=== PATIENT | female | born 1965 | race Caucasian/White ===

== ENCOUNTER 2016-09-17 07:07 | Observation (INO) | payer OTHER, MEDICAID ==
[~2016-09-17] VITALS: Ht 170.2 cm; Wt 98.0 kg
[2016-09-17] VITALS (10 sets, daily range): BP systolic 77–107; BP diastolic 45–64; PULSE 60–110; RESP 14–18; TEMP 97.9–98.2; O2SAT 91–97
[~2016-09-17 07:07] MED LIST: ASPI-110 PO; BACL10TA PO; CALC600T25 PO; GABA300C5 PO; LEVE500 PO; LEVO125T4 PO; MISC-274; NORC5TAB PO; OMEP20TA PO; ROSU20 PO; SUMA50TA2 PO; TRAZ100T4 PO
--- NOTE | 2016-09-17 07:12 | PD ---
HPI Chief Complaint: General Weakness Time Seen by Provider: 07:12 Travel History International Travel<30 days: No Contact w/Intl Traveler<30days: No Traveled to known affect area: No History of Present Illness HPI 51-year-old female came to the emergency room with history of presyncope and fall at 6:30 this morning. Patient has history of Marfan's syndrome and myasthenia gravis. She says that she has been feeling weak and lightheaded almost every morning. She avoids getting up from bed because of this. When she does she tries to do it slowly. However today in spite of all this she got extremely weak she when she got up and fell. She denies any loss of consciousness. Patient's mother and both are here were giving additional history although patient is perfectly capable of giving her own history as well. As per the mother patient was recently diagnosed with seizure disorder and she is on Keppra. During the same time she was also told that she has a tendency of hypertension although majority of the time her blood pressure runs in the 90s. This morning when this event happened patient called her mother who asked her to check her blood pressure at home. Patient checked with her own machine and it was 178/100. Based on this read her mother insisted that she should take her blood pressure medication which was metoprolol 25 mg. Patient says she took that again at 6:30 but after that she did not feel quite okay. She was unable to stand up due to the constant lightheadedness and asked her to take her to the emergency room. She used a walker but still had to get additional support from her since she was lightheaded. Patient says she fell yesterday as well for almost the same reason. When she arrived her blood pressure systolic was 77 and heart rate of 110. No history of head injury during the fall. No history of chest pain, nausea vomiting PFSH Past Medical History Narrative Medical List of her past medical, surgical, social and family history reviewed from the nursing note. Anemia: Yes Arthritis: Yes (left arm) Asthma: No Autoimmune Disease: No Blood Disorders: No Anxiety: Yes Depression: No Heart Rhythm Problems: No Cancer: No Cardiovascular Problems: Yes (HTN) High Cholesterol: Yes Chemotherapy: No Chest Pain: No Congestive Heart Failure: No COPD: No Diabetes: No Diminished Hearing: Yes (BILATERAL - STS HOLES IN EAR DRUMS) Endocrine: Yes Gastrointestinal Disorders: Yes (NAUSEA AND VOMITING) GERD: Yes Genitourinary: No Headaches: Yes Hepatitis: No Hypertension: Yes Immune Disorder: No Kidney Stones: No Musculoskeletal: Yes Neurologic: Yes Psychiatric: Yes Reproductive: No Respiratory: No Immunizations Current: Yes Migraines: Yes Myocardial Infarction: No Pancreatitis: Yes Radiation Therapy: No Renal Failure: No Sleep Apnea: No Thyroid Disease: Yes (HYPOTHYROIDISM) Menopausal: Yes : 2 Para: 2 Tubal Ligation: Yes (1988) Past Surgical History Abdominal Surgery: Yes (hernia repair, gall bladder removed) AICD: No Appendectomy: No Arteriovenous Shunt: No Cardiac Surgery: No Cholecystectomy: Yes Endocrine Surgery: No Eye Surgery: No Genitourinary Surgery: Yes (partial hysterectomy) Gynecologic Surgery: Yes Hysterectomy: Yes Insulin Pump: No Joint Replacement: No Neurologic Surgery: No Oral Surgery: Yes (WISDOM TEETH AND OTHER TEETH EXTRACTED) Pacemaker: No Thoracic Surgery: No Tonsillectomy: Yes Other Surgery: Yes (LAPROSCOPY WITH REMOVAL OF SCAR TISSUE FROM INTESTINES) Social History Alcohol Use: No Tobacco Use: No Substance Use: Yes (crack) Allergies-Medications (Allergen,Severity, Reaction): Coded Allergies: Codeine (Verified Allergy, Severe, RASH, 09/17/16) Morphine (Verified Allergy, Severe, 09/17/16) rash Penicillin (Verified Allergy, Severe, RASH, 09/17/16) Aspirin (Verified Adverse Reaction, Severe, ULCER, 09/17/16) Comments List of her allergies reviewed from the nursing note. Reported Meds & Prescriptions Reported Meds & Active Scripts Active Aspirin 81 (Aspirin) 81 Mg Tabdr 81 Mg PO DAILY 30 Days Keppra (Levetiracetam) 500 Mg Tab 500 Mg PO BID Folding Walker/5" Wheels (Device) 1 Mis Mis 1 Ea .ROUTE DIRECTED Reported Vitamin C (Calcium Ascorbate) 500 Mg Tab 500 Mg PO DAILY Fish Oil ([place]-3 Fatty Acids) 1,000 Mg Cap 2,000 Mg PO Coq-10 (Coenzyme Q10 (Ubidecarenone)) 400 Mg Cap 1 Tab PO DAILY Centrum Silver (Multiple Vitamins W/ Minerals) 1 Tab 1 Tab PO DAILY Biotin 5,000 Mcg Subl 5,000 Mcg SL DAILY Rosuvastatin (Rosuvastatin Calcium) 20 Mg Tab 20 Mg PO DAILY Stool Softener (Docusate Sodium) 100 Mg Cap 1 Cap PO DAILY Ondansetron (Ondansetron HCl) 4 Mg Tab 1 Mg PO BID Laxative Formula (Misc Natural Products) 1 Tab Tab 8.6 Mg PO DAILY@1600 Fenofibrate 145 Mg Tab 145 Mg PO DAILY Escitalopram (Escitalopram Oxalate) 20 Mg Tab 20 Mg PO BID Divalproex DR (Divalproex Sodium) 250 Mg Tabdr 250 Mg PO BID Cymbalta DR (Duloxetine HCl) 60 Mg Capdr 60 Mg PO HS Allergy 12 HR (Chlorpheniramine Maleate) 12 Mg Tab 12 Mg PO Q12H Calcium (Calcium Carbonate) 600 Mg Tab 1,200 Mg PO DAILY Trazodone (Trazodone HCl) 100 Mg Tab 100 Mg PO HS Gabapentin 300 Mg Cap 300 Mg PO TID Levothyroxine (Levothyroxine Sodium) 125 Mcg Tab 125 Mcg PO BID Omeprazole 20 Mg Tab 20 Mg PO DAILY Narrative Medication List of her home medications reviewed from the nursing note. Review of Systems Except as stated in HPI: all other systems reviewed are Neg Physical Exam Narrative GENERAL: Awake, alert, obese, moderate distress SKIN: Focused skin assessment warm/dry. HEAD: Atraumatic. Normocephalic. EYES: Pupils equal and round. No scleral icterus. No injection or drainage. ENT: No nasal bleeding or discharge. Mucous membranes pink and moist. NECK: Trachea midline. No JVD. CARDIOVASCULAR: Regular rate and rhythm. No murmur appreciated. RESPIRATORY: No accessory muscle use. Clear to auscultation. Breath sounds equal bilaterally. GASTROINTESTINAL: Abdomen soft, non-tender, nondistended. Hepatic and splenic margins not palpable. MUSCULOSKELETAL: No obvious deformities. No clubbing. No cyanosis. No edema. No obvious focal deficit NEUROLOGICAL: Awake and alert. No obvious cranial nerve deficits. Motor grossly within normal limits. Normal speech. PSYCHIATRIC: Appropriate mood and affect; insight and judgment normal. Data Data Last Documented VS Vital Signs Date Time Temp Pulse Resp B/P Pulse Ox O2 Delivery O2 Flow Rate FiO2 09/17/16 08:30 61 15 96/56 95 Nasal Cannula 2 09/17/16 07:11 98.2 Orders Electrocardiogram (09/17/16 ) Prothrombin Time / Inr (Pt) (09/17/16 07:48) Complete Blood Count With Diff (09/17/16 07:48) Basic Metabolic Panel (Bmp) (09/17/16 07:48) Troponin I (09/17/16 07:48) Ct Brain W/O Iv Contrast(Rout) (09/17/16 07:48) Ecg Monitoring (09/17/16 07:48) Iv Access Insert/Monitor (09/17/16 07:48) Oximetry (09/17/16 07:48) Sodium Chloride 0.9% Flush (Ns Flush) (09/17/16 08:00) Lipase (09/17/16 08:12) Pantoprazole Inj (Protonix Inj) (09/17/16 08:15) Creatine Kinase (Cpk) (09/17/16 09:23) Valproic Acid (Depakene) (09/17/16 09:23) Divalproex (Froilan Chua) (09/17/16 21:00) Duloxetine (John Chua) (09/17/16 21:00) Fenofibrate (Tricor) (09/18/16 09:00) Gabapentin (Neurontin) (09/17/16 21:00) Levetiracetam (Keppra) (09/17/16 21:00) Trazodone (Desyrel) (09/17/16 21:00) Aspirin Ec (Ecotrin Ec) (09/18/16 09:00) (Nf) Biotin (09/18/16 09:00) Ascorbic Acid (Vitamin C) (09/18/16 09:00) Calcium Carbonate (Oscal) (09/18/16 09:00) Patient Own Medication (09/17/16 21:00) (Nf) Coenzyme Q10 (Ubidecarenone) (Coq-1 (09/18/16 09:00) Docusate Sodium (Colace) (09/18/16 09:00) Multivitamins-Minerals Therap (Theragran (09/18/16 09:00) Pantoprazole (Protonix) (09/18/16 09:00) Ondansetron Odt (Zofran Odt) (09/17/16 21:00) Atorvastatin (Lipitor) (09/18/16 09:00) Thyroid Stimulating Hormone (09/17/16 09:27) Admit Order (Ed Use Only) (09/17/16 09:28) Levothyroxine (Synthroid) (09/18/16 06:00) Escitalopram (Lexapro) (09/18/16 09:00) Labs Laboratory Tests Test 09/17/16 07:40 White Blood Count 7.6 TH/MM3 Red Blood Count 4.47 MIL/MM3 Hemoglobin 12.6 GM/DL Hematocrit 38.3 % Mean Corpuscular Volume 85.7 FL Mean Corpuscular Hemoglobin 28.3 PG Mean Corpuscular Hemoglobin 33.0 % Concent Red Cell Distribution Width 14.5 % Platelet Count 394 TH/MM3 Mean Platelet Volume 8.2 FL Neutrophils (%) (Auto) % Lymphocytes (%) (Auto) % Monocytes (%) (Auto) % Eosinophils (%) (Auto) % Basophils (%) (Auto) % Neutrophils # (Auto) TH/MM3 Lymphocytes # (Auto) TH/MM3 Monocytes # (Auto) TH/MM3 Eosinophils # (Auto) TH/MM3 Basophils # (Auto) TH/MM3 CBC Comment AUTO DIFF Differential Total Cells 100 Counted Neutrophils % (Manual) 45 % Band Neutrophils % 3 % Lymphocytes % 41 % Monocytes % 6 % Eosinophils % 5 % Neutrophils # (Manual) 3.6 TH/MM3 Differential Comment FINAL DIFF MANUAL Platelet Estimate NORMAL Platelet Morphology Comment NORMAL Prothrombin Time 10.9 SEC Prothromb Time International 1.0 RATIO Ratio Sodium Level 139 MEQ/L Potassium Level 3.8 MEQ/L Chloride Level 101 MEQ/L Carbon Dioxide Level 26.4 MEQ/L Anion Gap 12 MEQ/L Blood Urea Nitrogen 25 MG/DL Creatinine 1.27 MG/DL Estimat Glomerular Filtration 44 ML/MIN Rate Random Glucose 114 MG/DL Calcium Level 9.1 MG/DL Total Creatine Kinase 34 U/L Troponin I LESS THAN 0.02 NG/ML Lipase 206 U/L Thyroid Stimulating Hormone 1.470 uIU/ML 3rd Gen Valproic Acid (Depakene) Level 32 MCG/ML [facility] Medical Decision Making Medical Screen Exam Complete: Yes Emergency Medical Condition: Yes Medical Record Reviewed: Yes Interpretation(s) Twelve-lead EKG was reviewed by me. Normal sinus rhythm, left axis deviation, anterior ST depression and T-wave inversion which is unchanged from 04/13. Heart rate of 63 bpm. Differential Diagnosis Orthostatic hypotension, iatrogenic hypotension, dehydration, sepsis Narrative Course 8:02 AM in my opinion patient has been hypotensive for which was exacerbated by taking the blood pressure medication. When she stood up she developed orthostatic hypotension which made her dizzy and fall. If this has been happening for a while then it could either be iatrogenically or dehydration or sepsis. Patient is getting a workup. Awaiting for blood test and CAT scan of her head. She is getting 1 L fluid bolus. I'll reassess her in a bit. 9:01 AM blood test results of back and shows somewhat elevated BUN and creatinine suggestive of possible dehydration. CT scan is within normal limit. Since this has been going on for past some time I would like to admit this patient at least for observation to keep an eye on her blood pressure and if she truly requires the blood pressure medication. Procedures EKG Prior to Arrival: No Diagnosis Primary Impression: Pre-syncope Additional Impressions: Fall Qualified Code: W19.XXXA - Fall, initial encounter Dehydration Orthostatic hypotension Admitting Information Admitting Physician Requests: Observation Siomara Erwin MD September 17, 2016 07:12
[2016-09-17] MEDS ORDERED: ONDA1TAB16 PO (07:28)
[2016-09-17] MEDS ORDERED: CYMB60CA PO (07:28)
[2016-09-17] MEDS ORDERED: [UNRECOGNIZED DRUG - CODE] PO (07:28)
[2016-09-17] MEDS ORDERED: CHLO1TAB23 PO (07:28)
[2016-09-17] MEDS ORDERED: ESCI20TA PO (07:28)
[2016-09-17] MEDS ORDERED: ROSU1TAB8 PO (07:28)
[2016-09-17] MEDS ORDERED: STOO100C PO (07:28)
[2016-09-17] MEDS ORDERED: FENO145T2 PO (07:28)
[2016-09-17] MEDS ORDERED: DIVA250T PO (07:28)
[2016-09-17] MEDS ORDERED: CENTTAB PO (07:31)
[2016-09-17] MEDS ORDERED: VITA-83 PO (07:31)
[2016-09-17] MEDS ORDERED: BIOT1SUB SL (07:31)
[2016-09-17] MEDS ORDERED: FISH1000 PO (07:31)
[2016-09-17] MEDS ORDERED: COEN400C PO (07:31)
[2016-09-17] MEDS ORDERED: SODIUM CHLORIDE 0.9% FLUSH 10 ML FLUSH IVF PRN (08:00)
[2016-09-17 08:07] LABS: HEMATOCRIT 38.3 % (35.0-46.0); MEAN CELL VOLUME 85.7 FL (80.0-100.0); MEAN CORPUSCULAR HEMOGLOBIN 28.3 PG (27.0-34.0); PLATELET COUNT 394 TH/MM3 (150-450); RED BLOOD COUNT 4.47 MIL/MM3 (4.00-5.30); RED CELL DISTRIBUTION WIDTH 14.5 % (11.6-17.2); WHITE BLOOD COUNT 7.6 TH/MM3 (4.0-11.0)
[2016-09-17 08:14] LABS: PROTHROMBIN TIME - PATIENT 10.9 SEC (9.8-11.6)
[2016-09-17] MEDS ORDERED: PANTOPRAZOLE SODIUM 40 MG VIAL IV PUSH ONE (08:15)
[2016-09-17 08:17] LABS: HEMO FLAGS AUTO DIFF
[2016-09-17 08:20] LABS: ANION GAP 12 MEQ/L (5-15); BICARBONATE 26.4 MEQ/L (21.0-32.0); BLOOD UREA NITROGEN 25 MG/DL (7-18); CHLORIDE 101 MEQ/L (98-107); GLOMERULAR FILTRATION RATE 44 ML/MIN (>89); POTASSIUM 3.8 MEQ/L (3.5-5.1); SODIUM (NA) 139 MEQ/L (136-145)
--- NOTE | 2016-09-17 08:30 | RADRPT ---
EXAM DATE/TIME: 09/17/2016 08:14 [place] COMPARISON: CT BRAIN W/O CONTRAST, April 24, 2016, 9:01. INDICATIONS : Patient complains of weakness and falling. RADIATION DOSE: 56.35 CTDIvol (mGy) MEDICAL HISTORY : Marfans syndrome,myasthenia gravis SURGICAL HISTORY : None. ENCOUNTER: Initial ACUITY: 1 day PAIN SCALE: 0/10 LOCATION: Bilateral cranial TECHNIQUE: Multiple contiguous axial images were obtained of the head. Using automated exposure control and adj ustment of the mA and/or kV according to patient size, radiation dose was kept as low as reasonably a chievable to obtain optimal diagnostic quality images. FINDINGS: CEREBRUM: The ventricles are normal. There is stable well-defined area of low density in the left basal ganglia . No evidence of midline shift, mass lesion, hemorrhage or acute infarction. No extra-axial fluid c ollections are seen. POSTERIOR FOSSA: The cerebellum and brainstem demonstrate no acute finding. The 4th ventricle is midline. The cerebe llopontine angle is unremarkable. EXTRACRANIAL: Visualized sinuses are clear. SKULL: The calvaria is intact. No evidence of skull fracture. CONCLUSION: Stable noncontrast head CT. No acute intracranial abnormality is identified. There is a stable old la cune in the left basal ganglia. Claude Lennon MD on September 17, 2016 at 8:26 Board Certified Radiologist. This report was verified electronically.
[2016-09-17 08:53] LABS: BANDS 3 % (0-6); EOSINOPHILS 5 % (0-4); NEUTROPHIL # MANUAL DIFF 3.6 TH/MM3 (1.8-7.7); POLYS (SEG NEUTROPHILS) 45 % (16-70); WBC DIFF SAMPLE 100
[2016-09-17 08:55] LABS: PLATELET ESTIMATE SMEAR NORMAL (NORMAL); PLATELET MORPHOLOGY NORMAL (NORMAL); SCAN/DIFF FINAL DIFF MANUAL
[2016-09-17] MEDS ORDERED: NALOXONE HCL 0.4 MG/ML AMP IV PRN (09:30)
[2016-09-17] MEDS ORDERED: SODIUM CHLOR 0.9% 250 ML INJ 250 ML IV PRN (09:30)
[2016-09-17] MEDS ORDERED: SENNOSIDES 8.6 MG TAB PO PRN (09:30)
[2016-09-17] MEDS ORDERED: ACETAMINOPHEN 325 MG TAB PO PRN ×2 (09:30)
[2016-09-17] MEDS ORDERED: SODIUM CHLORIDE 0.9% FLUSH 10 ML FLUSH IV FLUSH PRN (09:30)
[2016-09-17] MEDS ORDERED: ONDANSETRON HCL 4 MG/2 ML VIAL IVP PRN (09:30)
[2016-09-17] MEDS: SODIUM CHLOR 0.9% 1000 ML INJ 1,000 ML IV SCH ×2 (12:40→19:27)
--- NOTE | 2016-09-17 14:32 | HHI.HP ---
[facility] Gonsalo Vega MD Admission Diagnosis orthostatic hypotension, presyncope, dehydration Diagnoses: Chief Complaint: presyncope, fall Travel History International Travel<30 Days: No Contact w/Intl Traveler <30 Da: No Traveled to Known Affected Are: No History of Present Illness Written by Elba Hurley, acting as scribe for Dr. Ramirez on 09/17/16 at 14: 42. 51-year-old female with history of Marfan's syndrome, myasthenia gravis presents , intracerebral aneurysm, seizures, presents with a 2 day history of lightheadedness, near syncope, and subsequent fall. The patient reports she's experienced 2 falls in the past 2 days. The patient reports she gets very lightheaded then falls. Denies hitting her head but did slide down against the wall yesterday. This morning around 6am the patient got out of bed and became extremely lightheaded, subsequently weak, and fell to the floor. Denies hitting her head or any loss of consciousness. Later in the morning she took her blood pressure which was 171/100. She has been told in the past by her physicians to take her metoprolol 25mg when her blood pressure is high so she took this immediately, however her lightheadedness worsened and she was then not able to ambulate and asked her to take her to the ER. The patient denies any recent vomiting or diarrhea, however she has had recent dental extractions preparing for dental implants therefore she has mostly only been eating a liquid diet. The patient reports she last had an echocardiogram with her band straightener Dr. Holman in which was reportedly unremarkable. The patient has no other medical complaints at this time. Upon arrival, her blood pressure was 77/45, given IVF, blood pressure now improving. Review of Systems Except as stated in HPI: all other systems reviewed are Neg Past Family Social History Past Medical History Marfan's syndrome Myasthenia gravis Hypertension Hx of CVA Hypothyroidism GERD Arthritis Anxiety Seizure disorder Intracerebral aneurysm Past Surgical History Hernia surgeries Tubal ligation Hysterectomy Cholecystectomy Dental extractions Feet surgery Reported Medications Aspirin 81 (Aspirin) 81 Mg Tabdr 81 Mg PO DAILY 30 Days Keppra (Levetiracetam) 500 Mg Tab 500 Mg PO BID Folding Walker/5" Wheels (Device) 1 [facility] Mis 1 Ea .ROUTE DIRECTED Vitamin C (Calcium Ascorbate) 500 Mg Tab 500 Mg PO DAILY Fish Oil ([place]-3 Fatty Acids) 1,000 Mg Cap 2,000 Mg PO Coq-10 (Coenzyme Q10 (Ubidecarenone)) 400 Mg Cap 1 Tab PO DAILY Centrum Silver (Multiple Vitamins W/ Minerals) 1 Tab 1 Tab PO DAILY Biotin 5,000 Mcg Subl 5,000 Mcg SL DAILY Rosuvastatin (Rosuvastatin Calcium) 20 Mg Tab 20 Mg PO DAILY Stool Softener (Docusate Sodium) 100 Mg Cap 1 Cap PO DAILY Ondansetron (Ondansetron HCl) 4 Mg Tab 1 Mg PO BID Laxative Formula ([facility] Natural Products) 1 Tab Tab 8.6 Mg PO DAILY@1600 Fenofibrate 145 Mg Tab 145 Mg PO DAILY Escitalopram (Escitalopram Oxalate) 20 Mg Tab 20 Mg PO BID Divalproex DR (Divalproex Sodium) 250 Mg Tabdr 250 Mg PO BID Cymbalta DR (Duloxetine HCl) 60 Mg Capdr 60 Mg PO HS Allergy 12 HR (Chlorpheniramine Maleate) 12 Mg Tab 12 Mg PO Q12H Calcium (Calcium Carbonate) 600 Mg Tab 1,200 Mg PO DAILY Trazodone (Trazodone HCl) 100 Mg Tab 100 Mg PO HS Gabapentin 300 Mg Cap 300 Mg PO TID Levothyroxine (Levothyroxine Sodium) 125 Mcg Tab 125 Mcg PO BID Omeprazole 20 Mg Tab 20 Mg PO DAILY Allergies: Coded Allergies: Codeine (Verified Allergy, Severe, RASH, 09/17/16) Morphine (Verified Allergy, Severe, 09/17/16) rash Penicillin (Verified Allergy, Severe, RASH, 09/17/16) Aspirin (Verified Adverse Reaction, Severe, ULCER, 09/17/16) Active Ordered Medications Current Medications Medications (Trade) Dose Ordered Sig/Zan Route Start Time Stop Time Status Last Admin (Depakote Dr) 250 mg BID PO 09/17/16 21:00 (Cymbalta Dr) 60 mg HS PO 09/17/16 21:00 (Lexapro) 20 mg DAILY PO 09/18/16 09:00 (Tricor) 145 mg DAILY PO 09/18/16 09:00 (Neurontin) 300 mg BID PO 09/17/16 21:00 (Keppra) 500 mg BID PO 09/17/16 21:00 (Synthroid) 125 mcg DAILY@0600 PO 09/18/16 06:00 (Desyrel) 100 mg HS PO 09/17/16 21:00 (Ecotrin Ec) 81 mg DAILY PO 09/18/16 09:00 (Vitamin C) 500 mg DAILY PO 09/18/16 09:00 (Oscal) 1,000 mg DAILY PO 09/18/16 09:00 Patient Own Medication PT OWN MED: Chlorpheniramine 12 MG (Martin... BID PO 09/17/16 21:00 Future Hold (Colace) 100 mg DAILY PO 09/18/16 09:00 (Theragran M Tab) 1 tab DAILY PO 09/18/16 09:00 (Protonix) 20 mg DAILY PO 09/18/16 09:00 (Zofran Odt) 1 mg BID PO 09/17/16 21:00 Atorvastatin Calcium 40 mg 40 mg DAILY PO 09/18/16 09:00 Sodium Chloride 250 ml @ 250 mls/hr Q4H PRN IV 09/17/16 09:30 (NS 1000 ml Inj) 1,000 ml @ 100 mls/hr Q10H IV 09/17/16 09:27 09/17/16 12:40 (NS Flush) 2 ml UNSCH PRN IV FLUSH 09/17/16 09:30 (NS Flush) 2 ml BID IV FLUSH 09/17/16 21:00 (Tylenol) 650 mg Q4H PRN PO 09/17/16 09:30 (Zofran Inj) 4 mg Q6H PRN IVP 09/17/16 09:30 (Senokot) 17.2 mg Q12H PRN PO 09/17/16 09:30 (Tylenol) 650 mg Q6H PRN PO 09/17/16 09:30 (Narcan Inj) 0.4 mg UNSCH PRN IV 09/17/16 09:30 Family History Father and younger sibling with myasthenia gravis Social History Denies any tobacco, alcohol, or illicit drug use. Lives with her . Physical Exam Vital Signs Vital Signs Date Time Temp Pulse Resp B/P Pulse Ox O2 Delivery O2 Flow Rate FiO2 09/17/16 12:18 97.9 60 16 97/60 91 09/17/16 10:00 60 17 104/59 97 Nasal Cannula 2 09/17/16 08:30 61 15 96/56 95 Nasal Cannula 2 09/17/16 07:15 110 15 77/45 95 09/17/16 07:13 95 Nasal Cannula 2 09/17/16 07:13 74 17 91 Room Air 09/17/16 07:11 98.2 74 14 107/64 96 Physical Exam GENERAL: Well-nourished, well-developed middle aged female patient in [facility]. SKIN: Warm and dry. No rash. HEAD: Normocephalic. Atraumatic. EYES: Pupils equal and round. No scleral icterus. No injection or drainage. ENT: No nasal bleeding or discharge. Mucous membranes pink and moist. NECK: Supple. Trachea midline. CARDIOVASCULAR: Regular rate and rhythm. S1, S2 noted. No murmur appreciated. RESPIRATORY: No accessory muscle use. Clear to auscultation. Breath sounds equal bilaterally. GASTROINTESTINAL: Abdomen soft, non-tender, nondistended. Normoactive bowel sounds x4. MUSCULOSKELETAL: No obvious deformities. Extremities without clubbing, cyanosis , or edema. NEUROLOGICAL: Awake and alert. No obvious cranial nerve deficits. Motor grossly within normal limits. 5/5 muscle strength in bilateral upper and lower extremities. Normal speech. PSYCHIATRIC: Appropriate mood and affect; insight and judgment normal. Laboratory Laboratory Tests Test 09/17/16 07:40 White Blood Count 7.6 Red Blood Count 4.47 Hemoglobin 12.6 Hematocrit 38.3 Mean Corpuscular Volume 85.7 Mean Corpuscular Hemoglobin 28.3 Mean Corpuscular Hemoglobin 33.0 Concent Red Cell Distribution Width 14.5 Platelet Count 394 Mean Platelet Volume 8.2 Neutrophils (%) (Auto) Lymphocytes (%) (Auto) Monocytes (%) (Auto) Eosinophils (%) (Auto) Basophils (%) (Auto) Neutrophils # (Auto) Lymphocytes # (Auto) Monocytes # (Auto) Eosinophils # (Auto) Basophils # (Auto) CBC Comment AUTO DIFF Differential Total Cells 100 Counted Neutrophils % (Manual) 45 Band Neutrophils % 3 Lymphocytes % 41 Monocytes % 6 Eosinophils % 5 Neutrophils # (Manual) 3.6 Differential Comment FINAL DIFF MANUAL Platelet Estimate NORMAL Platelet Morphology Comment NORMAL Prothrombin Time 10.9 Prothromb Time International 1.0 Ratio Sodium Level 139 Potassium Level 3.8 Chloride Level 101 Carbon Dioxide Level 26.4 Anion Gap 12 Blood Urea Nitrogen 25 Creatinine 1.27 Estimat Glomerular Filtration 44 Rate Random Glucose 114 Calcium Level 9.1 Total Creatine Kinase 34 Troponin I LESS THAN 0.02 Lipase 206 Thyroid Stimulating Hormone 1.470 3rd Gen Valproic Acid (Depakene) Level 32 Result Diagram: 09/17/16 0740 09/17/16 0740 Imaging Last Impressions Head CT 09/17/16 0748 Signed Impressions: Service Date/Time: Saturday, September 17, 2016 08:14 - CONCLUSION: Stable noncontrast head CT. No acute intracranial abnormality is identified. There is a stable old lacune in the left basal ganglia. Claude Lennon MD Assessment and Plan Problem List: (1) Pre-syncope ICD Code: R55 Status: Acute (2) Fall ICD Code: W19.XXXA Status: Acute (3) Dehydration ICD Code: E86.0 Status: Resolved Assessment and Plan 51-year-old female with history of Marfan's syndrome, myasthenia gravis, intracerebral aneurysm, seizures, presents with a 2 day history of lightheadedness, near syncope, and subsequent fall. Lightheadedness/Near-Syncope: suspect secondary to hypotension with dehydration in combination with taking antihypertensive. BP 77/45 upon arrival. Given IVF bolus, BP improving. Head CT images reviewed, unremarkable for acute findings. Continue IVF. Check orthostatics. Hold BP meds. Monitor on telemetry. Neuro checks. Fall precautions. PT Eval. JOSE LUIS with Dehydration: Secondary to recent decreased oral intake after dental surgery. Cr 1.27 upon arrival, previously 0.78 in . Continue IVF. Repeat BMP. Avoid nephrotoxins. Hypotension: secondary to dehydration and antihypertensives. Holding BP med. On IVF. Monitor BP, improving. Seizure Disorder: chronic, continue patient's keppra and depakote. Depakote level low. Seizure precautions. Hypothyroidism: chronic, continue patient's levothyroxine. TSH wnl. GERD: chronic, continue patient's PPI. Hyperlipidemia: chronic, continue patient's statin. Anxiety: chronic, continue patient's home medications. All other chronic medical conditions stable, continue home medications as appropriate. DVT Prophylaxis: teds/SCDs Discharge Planning: likely discharge tomorrow if BP and renal function improves. This note was transcribed by nely Hurley. I, Dr. Noel Ramirez personally performed the history, physical exam, and medical decision making; and confirmed the accuracy of the information in the transcribed note. Authenticated by Dr. Noel Ramirez on 09/17/16 at 18:42. Discussed Condition With Patient, ER MD Problem Qualifiers (1) Fall: Qualified Code: W19.XXXA - Fall, initial encounter Elba Hurley PA-C September 17, 2016 14:32 Noel Ramirez MD September 17, 2016 18:42
[2016-09-17] MEDS: levETIRAcetam 500 MG TAB PO SCH (20:32)
[2016-09-17] MEDS: DIVALPROEX SODIUM DELAYED RELEASE 250 MG TAB PO SCH (20:33)
[2016-09-17] MEDS: GABAPENTIN 300 MG CAP PO SCH (20:33)
[2016-09-17] MEDS: ONDANSETRON ODT 4 MG TAB PO SCH (20:33)
[2016-09-17] MEDS: SODIUM CHLORIDE 0.9% FLUSH 10 ML FLUSH IV FLUSH SCH (20:33)
[2016-09-17] MEDS ORDERED: [UNRECOGNIZED DRUG - REMARK] PO SCH (21:00)
[2016-09-17] MEDS ORDERED: DULoxetine HCl DR 60 MG CAP PO SCH (21:00)
[2016-09-17] MEDS ORDERED: traZODone HCL 100 MG TAB PO SCH (21:00)
[2016-09-18 00:21] VITALS: BP 114/56; PULSE 59; RESP 18; TEMP 98.3; O2SAT 93
[2016-09-18] MEDS: SODIUM CHLOR 0.9% 1000 ML INJ 1,000 ML IV SCH (01:52)
[2016-09-18 04:20] VITALS: BP 128/62; PULSE 66; RESP 18; TEMP 98.5; O2SAT 91
[2016-09-18] MEDS ORDERED: LEVOTHYROXINE SODIUM 125 MCG TAB PO SCH (06:00)
[2016-09-18 07:55] LABS: BICARBONATE 28.6 MEQ/L (21.0-32.0)
[2016-09-18 08:43] VITALS: BP 121/76; PULSE 65; RESP 18; TEMP 98.4; O2SAT 96
[2016-09-18] MEDS: SODIUM CHLORIDE 0.9% FLUSH 10 ML FLUSH IV FLUSH SCH (08:50)
[2016-09-18] MEDS: levETIRAcetam 500 MG TAB PO SCH (08:51)
[2016-09-18] MEDS: DIVALPROEX SODIUM DELAYED RELEASE 250 MG TAB PO SCH (08:51)
[2016-09-18] MEDS: GABAPENTIN 300 MG CAP PO SCH (08:52)
[2016-09-18] MEDS: ONDANSETRON ODT 4 MG TAB PO SCH (08:52)
[2016-09-18] MEDS ORDERED: NON-FORMULARY DRUG (Biotin 5,000 MCG) SL SCH (09:00)
[2016-09-18] MEDS ORDERED: ASPIRIN EC 81 MG TABEC PO SCH (09:00)
[2016-09-18] MEDS ORDERED: ESCITALOPRAM OXALATE 20 MG TAB PO SCH (09:00)
[2016-09-18] MEDS ORDERED: ATORVASTATIN 40 MG TAB PO SCH (09:00)
[2016-09-18] MEDS ORDERED: NON-FORMULARY DRUG (Coenzyme Q10 (Ubidecarenone) (Coq-10) 1 TAB) PO SCH (09:00)
[2016-09-18] MEDS ORDERED: PANTOPRAZOLE SOD 20 MG DELAYED RELEASE TAB PO SCH (09:00)
[2016-09-18] MEDS ORDERED: ASCORBIC ACID 500 MG TAB PO SCH (09:00)
[2016-09-18] MEDS ORDERED: FENOFIBRATE 145 MG TAB PO SCH (09:00)
[2016-09-18] MEDS ORDERED: DOCUSATE SODIUM 100 MG CAP PO SCH (09:00)
[2016-09-18] MEDS ORDERED: CALCIUM CARBONATE 1.25 GM (CA 500 MG) TAB PO SCH (09:00)
[2016-09-18] MEDS ORDERED: MULTIVITAMINS/MINERALS THERAPEUTIC TAB PO SCH (09:00)
[2016-09-18 11:49] VITALS: BP 100/52; PULSE 65; RESP 18; TEMP 98.7; O2SAT 93
[2016-09-18 12:48] VITALS: BP_SYST 100; BP_SYST 108; BP_SYST 84; BP_DIAS 53; BP_DIAS 55; BP_DIAS 57; PULSE 67
--- NOTE | 2016-09-18 13:34 | HHI.PR ---
Subjective Remarks Follow-up for near syncope. The patient is feeling much better today. She's been ambulating with no difficulties. She states that the lightheadedness and dizziness have improved since she started transitioning to sitting and standing more slowly. She denies any chest pain or shortness of breath. She states that she is on some of her antidepressants for chronic pain, managed by her neurologist. She was taking metoprolol as needed for high blood pressure, denies any history of arrhythmia. She's been tolerating oral intake. She is happy to go today and follow-up with her physicians as outpatient. Objective Vitals Vital Signs Date Time Temp Pulse Resp B/P Pulse Ox O2 Delivery O2 Flow Rate FiO2 09/18/16 12:48 67 108/57 100/53 84/55 09/18/16 11:49 98.7 65 18 100/52 93 09/18/16 08:43 98.4 65 18 121/76 96 09/18/16 04:20 98.5 66 18 128/62 91 09/18/16 00:21 98.3 59 18 114/56 93 09/17/16 21:31 93 09/17/16 20:47 97.9 67 18 99/56 94 09/17/16 20:00 66 09/17/16 15:12 98.2 66 18 91/55 93 I/O 09/17/16 09/17/16 09/17/16 09/18/16 09/18/16 09/18/16 06:59 14:59 22:59 06:59 14:59 22:59 Intake Total 600 ml Balance 600 ml Intake Oral 200 ml IV Total 400 ml # Voids 1 1 Result Diagram: 09/17/16 0740 09/18/16 0640 Imaging Last Impressions Head CT 09/17/16 0748 Signed Impressions: Service Date/Time: Saturday, September 17, 2016 08:14 - CONCLUSION: Stable noncontrast head CT. No acute intracranial abnormality is identified. There is a stable old lacune in the left basal ganglia. Claude Lennon MD Objective Remarks GENERAL: Well-developed well-nourished. In no acute distress. SKIN: Warm and dry. No lesions noted. HEENT: Normocephalic. Pupils equal and round. Mucous membranes pink and moist. CARDIOVASCULAR: Regular rate and rhythm. No murmur appreciated. RESPIRATORY: No accessory muscle use. Clear to auscultation. Breath sounds equal bilaterally. GASTROINTESTINAL: Abdomen soft, non-tender, nondistended. Bowel sounds x4. MUSCULOSKELETAL: No obvious deformities. No clubbing or cyanosis. Trace edema. NEUROLOGICAL: Awake and alert. No focal neurological deficits. Moves upper and lower extremities spontaneously. Normal speech. PSYCHIATRIC: Appropriate mood and affect; insight and judgment normal. A/P Problem List: (1) Pre-syncope ICD Code: R55 Status: Acute (2) Fall ICD Code: W19.XXXA Status: Acute (3) Dehydration ICD Code: E86.0 Status: Resolved Assessment and Plan 51-year-old female with history of Marfan's syndrome, myasthenia gravis, intracerebral aneurysm, seizures, presents with a 2 day history of lightheadedness, near syncope, and subsequent fall. Lightheadedness/Near-Syncope/orthostatic hypotension: suspect secondary to orthostatic hypotension hypotension worsened by dehydration in combination with taking antihypertensive. BP 77/45 upon arrival. Given IVF, BP improving. Head CT unremarkable for acute findings. Orthostatic positive, possibly worsened by medication effect. Educated on slow transitions. Emphasized the need to follow -up with outpatient physicians for adjustment of medications particularly Prozac , Cymbalta, trazodone. Discontinue all BP meds. PT consulted, recommends no restrictions. Place OJ hose. Symptoms improved. JOSE LUIS with Dehydration: Secondary to recent decreased oral intake after dental surgery. Cr 1.27 upon arrival, previously 0.78 in . Creatinine improved to 0.85 on repeat BMP after IVF. Improved. Seizure Disorder: chronic, continue patient's keppra and depakote. Depakote level low. Seizure precautions. Hypothyroidism: chronic, continue patient's levothyroxine. TSH wnl. GERD: chronic, continue patient's PPI. Hyperlipidemia: chronic, continue patient's statin. Anxiety: chronic, continue patient's home medications. All other chronic medical conditions stable, continue home medications as appropriate. DVT Prophylaxis: teds/SCDs Discharge Planning Discharge patient to home Condition on discharge: Improved Regular Diet as tolerated Regular activity, slow transitions Rx written: OJ hose Follow-up with primary care physician and neurology Problem Qualifiers (1) Fall: Qualified Code: W19.XXXA - Fall, initial encounter Arnoldo Houston September 18, 2016 13:34
--- NOTE | 2016-09-18 15:39 | EKG ---
Date Performed: 09/17/2016 Time Performed: 07:36:46 PTAGE: 51 years EKG: Sinus rhythm LOW QRS VOLTAGE IN PRECORDIAL LEADS POSSIBLE LEFT VENTRICULAR HYPERTROPHY ST DEVIATION AND MODERATE T-WAVE ABNORMALITY, CONSIDER ANTERIOR ISCHEMIA ABNORMAL ECG Compared to prior tracing no significant change PREVIOUS TRACING : 04/24/2016 08.48 DOCTOR: Xenia Gordon Interpretating Date/Time 09/18/2016 15:38:31
[2016-09-18 16:11] VITALS: BP 93/55; PULSE 81; RESP 18; TEMP 98.4; O2SAT 94
== END 2016-09-18 18:11 | disposition home or self-care (01) ==
LOC: NEPC 07:07 → NEDA 09:29 → NEPHCDU 11:31
PROVIDERS: ADMIT Internal Medicine; ATTEND Internal Medicine
DX: R55 Syncope and collapse (principal); I95.2 Hypotension due to drugs; T46.5X5A Adverse effect of other antihypertensive drugs, initial encounter; N17.9 Acute kidney failure, unspecified; E86.0 Dehydration; I10 Essential (primary) hypertension; E03.9 Hypothyroidism, unspecified; K21.9 Gastro-esophageal reflux disease without esophagitis; F41.9 Anxiety disorder, unspecified; G40.909 Epilepsy, unspecified, not intractable, without status epilepticus; E78.5 Hyperlipidemia, unspecified; G70.00 Myasthenia gravis without (acute) exacerbation; E78.00 Pure hypercholesterolemia, unspecified; Z79.82 Long term (current) use of aspirin; Z88.6 Allergy status to analgesic agent; Z88.5 Allergy status to narcotic agent; Z88.0 Allergy status to penicillin; Z86.73 Personal history of transient ischemic attack (TIA), and cerebral infarction without residual deficits
CPT/HCPCS: 70450; 80048; 80164; 82550; 83690; 84443; 84484; 85007; 85027; 85610; 93005; 96374; 97162; 99285; C9113; G0378; G8987; G8988; J7030

== ENCOUNTER 2017-04-05 17:17 | Inpatient (IN) | payer OTHER, MEDICAID, MEDICARE ==
[~2017-04-05] VITALS: Ht 170.2 cm; Wt 104.0 kg
[~2017-04-05 17:17] MED LIST changes: -ASPI-110 PO; +ASPI1TAB57 PO; -BACL10TA PO; +BIOT1SUB SL; -CALC600T25 PO; +CALC600T5 PO; +CENTTAB PO; +CHLO1TAB23 PO; +COEN400C PO; +CYMB60CA PO; +DIVA250T PO; +DOCU1CAP66 PO; +ESCI20TA PO; +FENO145T2 PO; +FISH1000 PO; -NORC5TAB PO; -OMEP20TA PO; +OMEP20TA93 PO; +ONDA4TAB15 PO; +ROSU1TAB8 PO; -ROSU20 PO; -SUMA50TA2 PO; +VITA-83 PO; +[UNRECOGNIZED DRUG - CODE] PO
[2017-04-05 17:19] VITALS: BP 124/70; PULSE 116; RESP 20; TEMP 98.8; O2SAT 90
[2017-04-05] MEDS ORDERED: TRAZ100T10 PO (19:49)
[2017-04-05] MEDS: RESP: ALBUTEROL 2.5 MG/IPRATROPIUM 0.5 MG NEB (SCH) INH ×4 (19:56→22:03)
[2017-04-05 20:30] LABS: AUTOMATED NEUTROPHIL # 7.2 TH/MM3 (1.8-7.7); BASOPHIL % 0.3 % (0.0-2.0); EOSINOPHIL # 0.2 TH/MM3 (0-0.4); EOSINOPHIL % 1.6 % (0.0-4.0); HEMATOCRIT 39.8 % (35.0-46.0); LYMPH % 40.3 % (9.0-44.0); LYMPHOCYTE # 5.5 TH/MM3 (1.0-4.8); MEAN CELL VOLUME 88.5 FL (80.0-100.0); MEAN CORPUSCULAR HEMOGLOBIN 28.2 PG (27.0-34.0); MEAN CORPUSCULAR HGB CONC 31.9 % (32.0-36.0); MONO % 4.7 % (0.0-8.0); NEUT % 53.1 % (16.0-70.0); PLATELET COUNT 369 TH/MM3 (150-450); RED CELL DISTRIBUTION WIDTH 14.3 % (11.6-17.2); WHITE BLOOD COUNT 13.6 TH/MM3 (4.0-11.0)
[2017-04-05 20:32] LABS: HEMO FLAGS AUTO DIFF
[2017-04-05 20:37] LABS: BICARBONATE 32.6 MEQ/L (21.0-32.0); MAGNESIUM 1.9 MG/DL (1.5-2.5); POTASSIUM 3.9 MEQ/L (3.5-5.1)
--- NOTE | 2017-04-05 21:06 | PD ---
HPI Chief Complaint: Respiratory Symptoms Time Seen by Provider: 21:02 Travel History International Travel<30 days: No Contact w/Intl Traveler<30days: No Traveled to known affect area: No History of Present Illness HPI 52-year-old female that presents to the ED for evaluation of cold-like symptoms. Patient has had cold-like symptoms for about one week. Per patient about a week ago she was diagnosed with bronchitis by her doctor. She was started on antibiotics as well as albuterol with some relief. Per patient's symptoms continue and she went to an urgent care today. The doctor at the urgent care told her to come here to get evaluated as she was concerning for possible pneumonia. She does have a significant history of Marfan syndrome as well as myasthenia gravis. Per patient the symptoms do not appear to be related to this. She denies any chest pain. She does state having some shortness of breath with exertion mainly with the cough. Coughs productive. She also complains of some right lower back pain to wrist to the right leg. Per patient she had an MRI done outpatient and she follows with Dr. Maynard and was told that she might have a pinched nerve. She states that she's not been taking much for it and her pain has been worsening because of the cough. She also wants treatment for this. Per patient pain is 8 out of 10. She has any falls or injuries at this time. She denies any chest pain or abdominal pain. Nausea vomiting. No bowel movement or urinary issues. PFSH Past Medical History Anemia: Yes Arthritis: Yes (left arm) Asthma: No Autoimmune Disease: No Blood Disorders: Yes (Anemia) Anxiety: Yes Depression: Yes Heart Rhythm Problems: No Cancer: No Cardiovascular Problems: Yes (HTN, HLD) High Cholesterol: Yes (managed with meds) Chemotherapy: No Chest Pain: No Congestive Heart Failure: No COPD: No Diabetes: No Diminished Hearing: Yes (BILATERAL - STS HOLES IN EAR DRUMS) Endocrine: Yes Gastrointestinal Disorders: Yes (NAUSEA AND VOMITING) GERD: Yes Genitourinary: No Headaches: Yes Hepatitis: No Hypertension: Yes Immune Disorder: No Kidney Stones: No Musculoskeletal: Yes (Marfan's Syndrome) Psychiatric: Yes Reproductive: No (tubal Ligation, ) Respiratory: Yes Immunizations Current: Yes Migraines: Yes Myocardial Infarction: No Pancreatitis: Yes Radiation Therapy: No Renal Failure: No Sleep Apnea: Yes (DX'd about a year ago) Thyroid Disease: Yes (HYPOTHYROIDISM) Menopausal: Yes : 2 Para: 2 Tubal Ligation: Yes (1988) Past Surgical History Abdominal Surgery: Yes (hernia repair, gall bladder removed) AICD: No Appendectomy: No Arteriovenous Shunt: No Body Medical Devices: "I only have screws in my feet" Cardiac Surgery: No Cholecystectomy: Yes Endocrine Surgery: No Eye Surgery: No Genitourinary Surgery: Yes (partial hysterectomy) Gynecologic Surgery: Yes Hysterectomy: Yes Insulin Pump: No Joint Replacement: No Neurologic Surgery: No Oral Surgery: Yes (WISDOM TEETH AND OTHER TEETH EXTRACTED) Pacemaker: No Thoracic Surgery: No Tonsillectomy: Yes Other Surgery: Yes (LAPROSCOPY WITH REMOVAL OF SCAR TISSUE FROM INTESTINES) Social History Alcohol Use: No Tobacco Use: No Substance Use: Yes (crack cocaine 20 years ago) Allergies-Medications (Allergen,Severity, Reaction): Coded Allergies: codeine (Unverified Allergy, Severe, RASH, 04/05/17) morphine (Unverified Allergy, Severe, 04/05/17) rash penicillin G (Unverified Allergy, Severe, RASH, 04/05/17) aspirin (Unverified Adverse Reaction, Severe, ULCER, 04/05/17) Reported Meds & Prescriptions Reported Meds & Active Scripts Active Aspirin 81 (Aspirin) 81 Mg Tabdr 81 Mg PO DAILY 30 Days Keppra (Levetiracetam) 500 Mg Tab 500 Mg PO BID Reported Trazodone (Trazodone HCl) 100 Mg Tablet 100 Mg PO HS Fish Oil ([place]-3 Fatty Acids) 1,000 Mg Cap 2,000 Mg PO Coq-10 (Coenzyme Q10 (Ubidecarenone)) 400 Mg Cap 1 Tab PO DAILY Rosuvastatin (Rosuvastatin Calcium) 20 Mg Tab 20 Mg PO DAILY Stool Softener (Docusate Sodium) 100 Mg Cap 1 Cap PO DAILY Ondansetron (Ondansetron HCl) 4 Mg Tab 1 Mg PO BID Fenofibrate 145 Mg Tab 145 Mg PO DAILY Escitalopram (Escitalopram Oxalate) 20 Mg Tab 20 Mg PO BID Divalproex DR (Divalproex Sodium) 250 Mg Tabdr 250 Mg PO BID Cymbalta DR (Duloxetine HCl) 60 Mg Capdr 60 Mg PO HS Allergy 12 HR (Chlorpheniramine Maleate) 12 Mg Tab 12 Mg PO Q12H Calcium (Calcium Carbonate) 600 Mg Tab 1,200 Mg PO DAILY Gabapentin 300 Mg Cap 300 Mg PO TID Levothyroxine (Levothyroxine Sodium) 125 Mcg Tab 125 Mcg PO BID Omeprazole 20 Mg Tab 20 Mg PO DAILY Review of Systems Except as stated in HPI: all other systems reviewed are Neg Physical Exam Narrative GENERAL: SKIN: Warm and dry. HEAD: Atraumatic. Normocephalic. EYES: Pupils equal and round. No scleral icterus. No injection or drainage. ENT: No nasal bleeding or discharge. Mucous membranes pink and moist. Tongue is midline. No uvula deviation. NECK: Trachea midline. No JVD. CARDIOVASCULAR: Regular rate and rhythm. No murmurs, S3, S4. RESPIRATORY: No accessory muscle use. wheezing heard in all lung [place]. Breath sounds equal bilaterally. GASTROINTESTINAL: Abdomen soft, non-tender, nondistended. Hepatic and splenic margins not palpable. MUSCULOSKELETAL: Extremities without clubbing, cyanosis, or edema. No obvious deformities. Full range of motion of the upper and lower extremities bilaterally. 2+ pulses bilaterally. NEUROLOGICAL: Awake and alert. No obvious cranial nerve deficits. Motor grossly within normal limits. Five out of 5 muscle strength in the arms and legs. Normal speech. PSYCHIATRIC: Appropriate mood and affect; insight and judgment normal. Data Data Last Documented VS Vital Signs Date Time Temp Pulse Resp B/P (MAP) Pulse Ox O2 Delivery O2 Flow Rate FiO2 04/05/17 17:19 98.8 116 20 124/70 (88) 90 Room Air Orders Orders Complete Blood Count With Diff (04/05/17 19:45) Basic Metabolic Panel (Bmp) (04/05/17 19:45) B-Type Natriuretic Peptide (04/05/17 19:45) Magnesium (Mg) (04/05/17 19:45) Chest, Single Ap (04/05/17 19:45) Iv Access Insert/Monitor (04/05/17 19:45) Ecg Monitoring (04/05/17 19:45) Oximetry (04/05/17 19:45) Albuterol-Ipratropium Neb (Duoneb Neb) (04/05/17 19:45) Methylprednisolone So Succ Inj (Solumedr (04/05/17 21:15) Ceftriaxone Inj (Rocephin Inj) (04/05/17 21:30) Azithromycin Inj (Zithromax Inj) (04/05/17 21:30) Albuterol-Ipratropium Neb (Duoneb Neb) (04/05/17 21:30) Blood Culture (04/05/17 21:44) Admit Order (Ed Use Only) (04/05/17 21:51) Labs Laboratory Tests Test 04/05/17 20:00 White Blood Count 13.6 TH/MM3 Red Blood Count 4.50 MIL/MM3 Hemoglobin 12.7 GM/DL Hematocrit 39.8 % Mean Corpuscular Volume 88.5 FL Mean Corpuscular Hemoglobin 28.2 PG Mean Corpuscular Hemoglobin Concent 31.9 % Red Cell Distribution Width 14.3 % Platelet Count 369 TH/MM3 Mean Platelet Volume 7.4 FL Neutrophils (%) (Auto) 53.1 % Lymphocytes (%) (Auto) 40.3 % Monocytes (%) (Auto) 4.7 % Eosinophils (%) (Auto) 1.6 % Basophils (%) (Auto) 0.3 % Neutrophils # (Auto) 7.2 TH/MM3 Lymphocytes # (Auto) 5.5 TH/MM3 Monocytes # (Auto) 0.6 TH/MM3 Eosinophils # (Auto) 0.2 TH/MM3 Basophils # (Auto) 0.0 TH/MM3 CBC Comment AUTO DIFF Differential Total Cells Counted 100 Neutrophils % (Manual) 59 % Lymphocytes % 30 % Monocytes % 5 % Eosinophils % 4 % Neutrophils # (Manual) 8.3 TH/MM3 Metamyelocytes 1 % Myelocytes 1 % Differential Comment FINAL DIFF MANUAL Platelet Estimate NORMAL Platelet Morphology Comment NORMAL Blood Urea Nitrogen 37 MG/DL Creatinine 1.36 MG/DL Random Glucose 112 MG/DL Calcium Level 9.3 MG/DL Magnesium Level 1.9 MG/DL Sodium Level 134 MEQ/L Potassium Level 3.9 MEQ/L Chloride Level 96 MEQ/L Carbon Dioxide Level 32.6 MEQ/L Anion Gap 5 MEQ/L Estimat Glomerular Filtration Rate 41 ML/MIN B-Type Natriuretic Peptide 7 PG/ML MDM Medical Decision Making Medical Screen Exam Complete: Yes Emergency Medical Condition: Yes Medical Record Reviewed: Yes Interpretation(s) CBC & BMP Diagram 04/05/17 20:00 Calcium Level 9.3, Magnesium Level 1.9 BNP within normal limits. Differential Diagnosis Shortness of breath versus COPD exacerbation versus bronchitis versus pneumonia versus CHF versus kidney injury versus pneumonia Narrative Course 52-year-old female that presents to the ED for evaluation of shortness of breath and possible pneumonia as well as back pain. Patient was properly examined and was found to have signs and symptoms consistent appears to be possible pneumonia versus bronchitis. She does appear to be very symptomatically exam. O2 initially was in the 90s. This initial for her. She does have a lot of wheezing on exam. She is already taking albuterol at home with minimal relief. Labs and imaging were ordered. Labs and imaging were essentially unremarkable exam for slight elevation of the leukocytosis as well as what appears to be likely chronic kidney disease. Patient was given breathing treatments with minimal improvement. O2 status still on the low 90s which is unusual for the patient. Chest x-ray did show pneumonia. Patient was already on antibiotics for this. Patient has failed outpatient treatment. Because of patient's O2 status as well as leukocytosis and pneumonia do recommend admission for further treatment and IV antibiotics. Patient is agreement with this plan. Case discussed with attending who agrees with this as well. LUCIO was paged and Dr Morin agrees with plan. Sepsis Criteria SIRS Criteria (2 or more): Heart rate over 90, WBC > 66338, < 4000 or > 10% bands Sepsis Criteria (SIRS+source): Infect source susp/known Criteria Outcome: Meets sepsis criteria Diagnosis Primary Impression: Pneumonia Qualified Codes: J18.1 - Lobar pneumonia, unspecified organism Admitting Information Admitting Physician Requests: Isaak Arnold Apr 05, 2017 21:06
--- NOTE | 2017-04-05 21:11 | RADRPT ---
EXAM DATE/TIME: 04/05/2017 20:02 [facility] COMPARISON: CHEST SINGLE AP, April 24, 2016, 8:17. INDICATIONS : Shortness of breath MEDICAL HISTORY : Cardiovascular disease. Hypertension. Myasthenia gravis, Marfan SURGICAL HISTORY : None. ENCOUNTER: Initial ACUITY: 1 week PAIN SCORE: 0/10 LOCATION: Bilateral chest FINDINGS: There is mild patchiness within the left lung base consistent with atelectasis and/or developing infi ltrate. Clinical correlation is recommended. The heart is stable. The right lung is clear. Degenerati ve changes and scoliosis of the thoracic spine are noted. CONCLUSION: Mild patchiness within the left lung base consistent with atelectasis and/or developing infiltrate. C linical correlation is recommended. Jd Gee MD on April 05, 2017 at 21:09 Board Certified Radiologist. This report was verified electronically.
[2017-04-05] MEDS ORDERED: methylPREDNISolone SOD SUCC 125 MG/2 ML VIAL IV PUSH ONE (21:15)
[2017-04-05 21:23] LABS: EOSINOPHILS 4 % (0-4); METAMYELOCYTES 1 % (0-1); MYELOCYTES 1 % (0-0); NEUTROPHIL # MANUAL DIFF 8.3 TH/MM3 (1.8-7.7); POLYS (SEG NEUTROPHILS) 59 % (16-70); SCAN/DIFF FINAL DIFF MANUAL; WBC DIFF SAMPLE 100
[2017-04-05 21:24] LABS: PLATELET ESTIMATE SMEAR NORMAL (NORMAL); PLATELET MORPHOLOGY NORMAL (NORMAL)
[2017-04-05] MEDS ORDERED: cefTRIAXone INJ 1,000 MG in SODIUM CHLORIDE 0.9% INJ 100 ML IV ONE (21:30)
[2017-04-05] MEDS ORDERED: AZITHROMYCIN INJ 500 MG in SODIUM CHLOR 0.9% 250 ML INJ 250 ML IV ONE (21:30)
[2017-04-05] MEDS ORDERED: SODIUM CHLORIDE 0.9% FLUSH 10 ML FLUSH IV FLUSH PRN (22:00)
[2017-04-05] MEDS ORDERED: RESP: ALBUTEROL 2.5 MG/IPRATROPIUM 0.5 MG NEB (PRN) INH (22:00)
[2017-04-05 22:22] VITALS: BP 101/50; PULSE 95; RESP 16; O2SAT 96
[2017-04-05 22:23] VITALS: O2SAT 96
[2017-04-06] VITALS: BP 115/59; PULSE 91; RESP 17; TEMP 97.4; O2SAT 93
[2017-04-06] MEDS ORDERED: oxyCODONE/ACETAMINOPHEN 5 MG/325 MG TAB PO ONE (02:00)
--- NOTE | 2017-04-06 02:01 | HHI.HP ---
[facility] Service [facility] Primary Care Physician Gonsalo Vega MD Admission Diagnosis acute pneumonia, failed outpatient treatment, sepsis Diagnoses: Travel History International Travel<30 Days: No Contact w/Intl Traveler <30 Da: No Traveled to Known Affected Are: No History of Present Illness 52-year-old female with a past medical history significant for seizure disorder , hypertension, hyperlipidemia, Marfan syndrome and hypothyroidism presents to the emergency department from her doctor's office for the treatment of possible pneumonia. The patient reports that she was diagnosed with bronchitis a week ago and prescribed Cefdinir. She was compliant with the medication however her symptoms continued to worsen. She returned to her primary care physician's office today where she was diagnosed with probable pneumonia and sent to the emergency department for further evaluation. On arrival to the ED, the patient was found to be hypoxic with a pulse ox of 90% on room air. She was tachycardic to 116. Creatinine 1.36 with a baseline of 0.85. Chest x-ray showed mild patchiness within the left lung base. WBC 13.6. Patient denies fever/chills or other systemic symptoms. Review of Systems Denies fever or chills Denies blurry vision, otorrhea, rhinorrhea Denies sore throat and cough No chest pain, palpitations, positive shortness of breath No abdominal pain Denies constipation/diarrhea/nausea/vomiting Denies muscle pain/weakness No rashes Past Family Social History Past Medical History Seizure disorder Hypothyroidism Hypertension Hyperlipidemia Marfan syndrome Past Surgical History Cholecystectomy Hernia repair 3 Tonsillectomy Bilateral foot surgery Bladder surgery for prolapse Reported Medications Reported Meds & Active Scripts Active Aspirin 81 (Aspirin) 81 Mg Tabdr 81 Mg PO DAILY 30 Days Keppra (Levetiracetam) 500 Mg Tab 500 Mg PO BID Reported Trazodone (Trazodone HCl) 100 Mg Tablet 100 Mg PO HS Fish Oil ([place]-3 Fatty Acids) 1,000 Mg Cap 2,000 Mg PO Coq-10 (Coenzyme Q10 (Ubidecarenone)) 400 Mg Cap 1 Tab PO DAILY Rosuvastatin (Rosuvastatin Calcium) 20 Mg Tab 20 Mg PO DAILY Stool Softener (Docusate Sodium) 100 Mg Cap 1 Cap PO DAILY Ondansetron (Ondansetron HCl) 4 Mg Tab 1 Mg PO BID Fenofibrate 145 Mg Tab 145 Mg PO DAILY Escitalopram (Escitalopram Oxalate) 20 Mg Tab 20 Mg PO BID Divalproex DR (Divalproex Sodium) 250 Mg Tabdr 250 Mg PO BID Cymbalta DR (Duloxetine HCl) 60 Mg Capdr 60 Mg PO HS Allergy 12 HR (Chlorpheniramine Maleate) 12 Mg Tab 12 Mg PO Q12H Calcium (Calcium Carbonate) 600 Mg Tab 1,200 Mg PO DAILY Gabapentin 300 Mg Cap 300 Mg PO TID Levothyroxine (Levothyroxine Sodium) 125 Mcg Tab 125 Mcg PO BID Omeprazole 20 Mg Tab 20 Mg PO DAILY Allergies: Coded Allergies: codeine (Unverified Allergy, Severe, RASH, 04/05/17) morphine (Unverified Allergy, Severe, 04/05/17) rash penicillin G (Unverified Allergy, Severe, RASH, 04/05/17) aspirin (Unverified Adverse Reaction, Severe, ULCER, 04/05/17) Family History Mother with diabetes mellitus Social History Denies tobacco, alcohol and illicit drugs Physical Exam Vital Signs Vital Signs Date Time Temp Pulse Resp B/P (MAP) Pulse Ox O2 Delivery O2 Flow Rate FiO2 04/06/17 00:00 97.4 91 17 115/59 (77) 93 04/05/17 23:59 16 97 Room Air 04/05/17 23:54 04/05/17 22:23 96 04/05/17 22:22 95 16 101/50 (67) 96 04/05/17 17:19 98.8 116 20 124/70 (88) 90 Room Air Physical Exam GENERAL: female lying in bed SKIN: No rashes, ecchymoses or lesions. Cool and dry. HEAD: Atraumatic. Normocephalic. No temporal or scalp tenderness. EYES: Pupils equal round and reactive. Extraocular motions intact. No scleral icterus. No injection or drainage. ENT: Nose without bleeding, purulent drainage or septal hematoma. Throat without erythema, tonsillar hypertrophy or exudate. Uvula midline. Airway patent. NECK: Trachea midline. No JVD or lymphadenopathy. Supple, nontender, no meningeal signs. CARDIOVASCULAR: Regular rate and rhythm without murmurs, gallops, or rubs. RESPIRATORY: Clear to auscultation. Breath sounds equal bilaterally. No wheezes , rales, or rhonchi. GASTROINTESTINAL: Abdomen soft, non-tender, nondistended. No hepato-splenomegaly , or palpable masses. No guarding. MUSCULOSKELETAL: Extremities without clubbing, cyanosis, or edema. No joint tenderness, effusion, or edema noted. No calf tenderness. NEUROLOGICAL: Awake and alert. Cranial nerves II through XII intact. Motor and sensory grossly within normal limits. Normal speech. Laboratory Laboratory Tests Test 04/05/17 20:00 White Blood Count 13.6 Red Blood Count 4.50 Hemoglobin 12.7 Hematocrit 39.8 Mean Corpuscular Volume 88.5 Mean Corpuscular Hemoglobin 28.2 Mean Corpuscular Hemoglobin Concent 31.9 Red Cell Distribution Width 14.3 Platelet Count 369 Mean Platelet Volume 7.4 Neutrophils (%) (Auto) 53.1 Lymphocytes (%) (Auto) 40.3 Monocytes (%) (Auto) 4.7 Eosinophils (%) (Auto) 1.6 Basophils (%) (Auto) 0.3 Neutrophils # (Auto) 7.2 Lymphocytes # (Auto) 5.5 Monocytes # (Auto) 0.6 Eosinophils # (Auto) 0.2 Basophils # (Auto) 0.0 CBC Comment AUTO DIFF Differential Total Cells Counted 100 Neutrophils % (Manual) 59 Lymphocytes % 30 Monocytes % 5 Eosinophils % 4 Neutrophils # (Manual) 8.3 Metamyelocytes 1 Myelocytes 1 Differential Comment FINAL DIFF MANUAL Platelet Estimate NORMAL Platelet Morphology Comment NORMAL Blood Urea Nitrogen 37 Creatinine 1.36 Random Glucose 112 Calcium Level 9.3 Magnesium Level 1.9 Sodium Level 134 Potassium Level 3.9 Chloride Level 96 Carbon Dioxide Level 32.6 Anion Gap 5 Estimat Glomerular Filtration Rate 41 B-Type Natriuretic Peptide 7 Result Diagram: 04/05/17199904/05/171999 Caprini VTE Risk Assessment Caprini VTE Risk Assessment: Mod/High Risk (score >= 2) Caprini Risk Assessment Model Point Value = 1 Point Value = 2 Point Value = 3 Point Value = 5 Age 41-60 Minor surgery BMI > 25 kg/m2 Swollen legs Varicose veins or History of unexplained or recurrent spontaneous Oral contraceptives or hormone replacement Sepsis (< 1 month) Serious lung disease, including pneumonia (< 1 month) Abnormal pulmonary function Acute myocardial infarction Congestive heart failure (< 1 month) History of inflammatory bowel disease Medical patient at bed rest Age 61-74 Arthroscopic surgery Major open surgery (> 45 min) Laparoscopic surgery (> 45 min) Malignancy Confined to bed (> 72 hours) Immobilizing plaster cast Central venous access Age >= 75 History of VTE Family history of VTE Factor V Leiden Prothrombin [id number] Lupus anticoagulant Anticardiolipin antibodies Elevated serum homocysteine Heparin-induced thrombocytopenia Other congenital or acquired thrombophilia Stroke (< 1 month) Elective arthroplasty Hip, pelvis, or leg fracture Acute spinal cord injury (< 1 month) Prophylaxis Regimen Total Risk Factor Score Risk Level Prophylaxis Regimen 0-1 Low Early ambulation 2 Moderate Order ONE of the following: *Sequential Compression Device (SCD) *Heparin 5000 units SQ BID 3-4 Higher Order ONE of the following medications: *Heparin 5000 units SQ TID *Enoxaparin/Lovenox 40 mg SQ daily (WT < 150 kg, CrCl > 30 mL/min) *Enoxaparin/Lovenox 30 mg SQ daily (WT < 150 kg, CrCl > 10-29 mL/min) *Enoxaparin/Lovenox 30 mg SQ BID (WT < 150 kg, CrCl > 30 mL/min) AND/OR *Sequential Compression Device (SCD) 5 or more Highest Order ONE of the following medications: *Heparin 5000 units SQ TID (Preferred with Epidurals) *Enoxaparin/Lovenox 40 mg SQ daily (WT < 150 kg, CrCl > 30 mL/min) *Enoxaparin/Lovenox 30 mg SQ daily (WT < 150 kg, CrCl > 10-29 mL/min) *Enoxaparin/Lovenox 30 mg SQ BID (WT < 150 kg, CrCl > 30 mL/min) AND *Sequential Compression Device (SCD) Assessment and Plan Assessment and Plan Assessment/plan: 1. Community-acquired pneumonia X-ray showing mild patchiness within the left lung base, images reviewed by me Patient completed 7 days of Cefdinir Levaquin Duo nebs Monitor for signs of hypoxia, supplemental oxygen prn 2. JOSE LUIS Creatinine 1.36, baseline 0.85 IV fluid hydration Avoid nephrotoxic agents Follow-up BMP 3. Seizure disorder Last seizure April Continue home antiepileptics 4. Hypertension/hyperlipidemia/hypothyroidism Continue home medications 5. Right lower extremity pain Per patient report, she has discs compressing the nerves to her right leg She will follow-up with pain management as an outpatient Percocet when necessary FEN Regular diet Electrolytes: monitor and replete prn NS at 100 cc/hr Heparin Case discussed with ER Physician at length Physician Certification 2 Midnight Certification Type: Admission for Inpatient Services Order for Inpatient Services The services are ordered in accordance with Medicare regulations or non- Medicare payer requirements, as applicable. In the case of services not specified as inpatient-only, they are appropriately provided as inpatient services in accordance with the 2-midnight benchmark. Estimated LOS (days): 2 2 days is the estimated time the patient will need to remain in the hospital, assuming treatment plan goals are met and no additional complications. Post-Hospital Plan: Not yet determined Gerri Morin MD Apr 06, 2017 02:01
[2017-04-06] MEDS: LEVOFLOXACIN 750 MG PREMIX INJ 150 ML IV SCH (03:19)
[2017-04-06] MEDS: SODIUM CHLOR 0.9% 1000 ML INJ 1,000 ML IV SCH ×3 (03:20→22:31)
[2017-04-06] MEDS: HEPARIN SODIUM - SQ 10,000 UNITS/ML VIAL SQ SCH ×3 (04:48→20:17)
[2017-04-06 06:30] LABS: AUTOMATED NEUTROPHIL # 11.5 TH/MM3 (1.8-7.7); BASOPHIL % 0.1 % (0.0-2.0); EOSINOPHIL % 0.1 % (0.0-4.0); HEMATOCRIT 33.8 % (35.0-46.0); HEMO FLAGS DIFF FINAL; LYMPH % 10.4 % (9.0-44.0); LYMPHOCYTE # 1.4 TH/MM3 (1.0-4.8); MEAN CELL VOLUME 88.5 FL (80.0-100.0); MEAN CORPUSCULAR HEMOGLOBIN 29.3 PG (27.0-34.0); MEAN CORPUSCULAR HGB CONC 33.1 % (32.0-36.0); NEUT % 87.4 % (16.0-70.0); PLATELET COUNT 283 TH/MM3 (150-450); RED BLOOD COUNT 3.82 MIL/MM3 (4.00-5.30); RED CELL DISTRIBUTION WIDTH 14.7 % (11.6-17.2); WHITE BLOOD COUNT 13.1 TH/MM3 (4.0-11.0)
[2017-04-06 07:07] LABS: BICARBONATE 26.1 MEQ/L (21.0-32.0); POTASSIUM 4.4 MEQ/L (3.5-5.1)
[2017-04-06 08:00] VITALS: BP 118/68; PULSE 85; RESP 16; TEMP 97.5; O2SAT 93
[2017-04-06] MEDS ORDERED: methylPREDNISolone SOD SUCC 40 MG/1 ML VIAL IV PUSH SCH (09:00)
[2017-04-06] MEDS ORDERED: AZITHROMYCIN 250 MG TAB PO SCH (09:00)
[2017-04-06] MEDS ORDERED: BISACODYL 10 MG SUPP RECTAL PRN (09:15)
[2017-04-06] MEDS ORDERED: ONDANSETRON HCL 4 MG/2 ML VIAL IV PUSH PRN (09:15)
[2017-04-06] MEDS ORDERED: SENNOSIDES 8.6 MG TAB PO PRN (09:15)
[2017-04-06] MEDS ORDERED: CALCIUM CARBONATE 500 MG CHEWABLE TAB CHEW PRN (09:15)
[2017-04-06] MEDS ORDERED: LACTULOSE SYRUP 20 GM/30 ML CUP PO PRN (09:15)
[2017-04-06] MEDS ORDERED: DOCUSATE SODIUM 100 MG CAP PO PRN (09:15)
[2017-04-06] MEDS ORDERED: ACETAMINOPHEN 325 MG TAB PO PRN (09:15)
[2017-04-06] MEDS: SODIUM CHLORIDE 0.9% FLUSH 10 ML FLUSH IV FLUSH SCH ×2 (09:39→20:16)
[2017-04-06] MEDS: ATORVASTATIN 40 MG TAB PO SCH (09:40)
[2017-04-06] MEDS: GABAPENTIN 300 MG CAP PO SCH ×3 (09:40→17:55)
[2017-04-06] MEDS: oxyCODONE/ACETAMINOPHEN 5 MG/325 MG TAB PO PRN ×4 (09:40→22:31)
[2017-04-06] MEDS: PANTOPRAZOLE SOD 20 MG DELAYED RELEASE TAB PO SCH (09:40)
[2017-04-06] MEDS: ESCITALOPRAM OXALATE 20 MG TAB PO SCH ×2 (09:40→20:17)
[2017-04-06] MEDS: levETIRAcetam 500 MG TAB PO SCH ×2 (09:41→20:17)
[2017-04-06] MEDS: DIVALPROEX SODIUM DELAYED RELEASE 250 MG TAB PO SCH ×2 (09:41→22:30)
[2017-04-06] MEDS: FENOFIBRATE 145 MG TAB PO SCH (09:41)
[2017-04-06] MEDS: LEVOTHYROXINE SODIUM 125 MCG TAB PO SCH ×2 (09:41→20:17)
[2017-04-06] MEDS: ASPIRIN EC 81 MG TABEC PO SCH (09:41)
[2017-04-06] MEDS: AZTREONAM INJ 2,000 MG in SODIUM CHLORIDE 0.9% INJ 100 ML IV SCH ×2 (11:08→17:56)
[2017-04-06 12:00] VITALS: BP 113/66; PULSE 74; RESP 17; TEMP 97.5; O2SAT 93
[2017-04-06 12:53] LABS: LACTIC ACID GHOST NOT REPORTABLE
--- NOTE | 2017-04-06 14:23 | HHI.PR ---
Subjective Remarks Follow-up pneumonia. States she is feeling better currently on room air. Seen with .. Discussed with RN Objective Vitals Vital Signs Date Time Temp Pulse Resp B/P (MAP) Pulse Ox O2 Delivery O2 Flow Rate FiO2 04/06/17 12:00 97.5 74 17 113/66 (82) 93 04/06/17 08:00 97.5 85 16 118/68 (85) 93 04/06/17 00:00 97.4 91 17 115/59 (77) 93 04/05/17 23:59 16 97 Room Air 04/05/17 23:54 04/05/17 22:23 96 04/05/17 22:22 95 16 101/50 (67) 96 04/05/17 17:19 98.8 116 20 124/70 (88) 90 Room Air I/O 04/05/17 04/05/17 04/05/17 04/06/17 04/06/17 04/06/17 07:00 15:00 23:00 07:00 15:00 23:00 Intake Total 270 ml 750 ml Balance 270 ml 750 ml Intake Oral 120 ml IV Total 150 ml 750 ml # Voids 0 # Bowel Movements 0 Result Diagram: 04/06/1751904/06/17519 Imaging Last Impressions Chest X-Ray 04/05/171944 Signed Impressions: Service Date/Time: Wednesday, April 05, 2017 20:02 - CONCLUSION: Mild patchiness within the left lung base consistent with atelectasis and/or developing infiltrate. Clinical correlation is recommended. Jd Gee MD Objective Remarks GENERAL: female lying in bed SKIN: No rashes, ecchymoses or lesions. Cool and dry. CARDIOVASCULAR: Regular rate and rhythm without murmurs, gallops, or rubs. RESPIRATORY: Clear to auscultation. Breath sounds equal bilaterally. No wheezes , rales, or rhonchi. GASTROINTESTINAL: Abdomen soft, non-tender, nondistended. No guarding. MUSCULOSKELETAL: Extremities without clubbing, cyanosis, or edema. No joint tenderness, effusion, or edema noted. No calf tenderness. NEUROLOGICAL: Awake and alert. Cranial nerves II through XII intact. Motor and sensory grossly within normal limits. Normal speech. Procedures None A/P Problem List: (1) Pneumonia ICD Code: J18.9 - Pneumonia, unspecified organism Status: Acute Assessment and Plan 1. Community-acquired pneumonia with hypoxia and severe sepsis. Clinically improving currently on room air. X-ray showing mild patchiness within the left lung base, images reviewed by me Patient completed 7 days of Cefdinir Levaquin. Add aztreonam. Obtain sputum culture, urinary antigen for pneumococcal and Legionella. Blood cultures negative to date Duo nebs Monitor for signs of hypoxia, supplemental oxygen prn 2. JOSE LUIS. Improving Creatinine 1.36, baseline 0.85 IV fluid hydration Avoid nephrotoxic agents Follow-up BMP 3. Seizure disorder. Stable Last seizure April Continue home antiepileptics 4. Hypertension/hyperlipidemia/hypothyroidism Continue home medications 5. Right lower extremity pain Per patient report, she has discs compressing the nerves to her right leg She will follow-up with pain management as an outpatient Percocet when necessary FEN Regular diet Electrolytes: monitor and replete prn NS at 100 cc/hr Heparin Discharge Planning Not ready for discharge needs IV antibiotics at this time Problem Qualifiers (1) Pneumonia: Qualified Codes: J18.1 - Lobar pneumonia, unspecified organism Noel Ramirez MD Apr 06, 2017 14:22
[2017-04-06] MEDS ORDERED: OXYC1TAB63 PO (14:27)
[2017-04-06] MEDS ORDERED: LEVA750T9 PO (14:27)
--- NOTE | 2017-04-06 14:27 | HHI.DCPOC ---
Discharge Care Plan Diagnosis: (1) Pneumonia Your Health Problems Are: Difficulty with ADL Exercise Tolerance Goals to Promote Your Health * To prevent worsening of your condition and complications * To maintain your health at the optimal level Directions to Meet Your Goals Take your medications as prescribed Follow your dietary instruction Follow activity as directed Keep your appointments as scheduled Take your immunizations and boosters as scheduled If your symptoms worsen call your PCP, if no PCP go to Urgent Care Center or Emergency Room Smoking is Dangerous to Your Health. Avoid second hand smoke Call the 24-hour hour crisis hotline for domestic abuse at Noel Ramirez MD Apr 06, 2017 14:27
[2017-04-06 16:00] VITALS: BP 122/75; PULSE 85; RESP 17; TEMP 97.1; O2SAT 95
[2017-04-06 20:01] VITALS: BP 134/83; PULSE 82; RESP 20; TEMP 97; O2SAT 93
[2017-04-06] MEDS ORDERED: traZODone HCL 100 MG TAB PO SCH (21:00)
[2017-04-06] MEDS ORDERED: DULoxetine HCl DR 60 MG CAP PO SCH (21:00)
[2017-04-06] MEDS ORDERED: cefTRIAXone INJ 1,000 MG in SODIUM CHLORIDE 0.9% INJ 100 ML IV SCH (21:30)
[2017-04-06 23:49] VITALS: BP 117/69; PULSE 80; RESP 18; TEMP 96.3; O2SAT 97
[2017-04-07] MEDS: LEVOFLOXACIN 750 MG PREMIX INJ 150 ML IV SCH (00:34)
[2017-04-07] MEDS: AZTREONAM INJ 2,000 MG in SODIUM CHLORIDE 0.9% INJ 100 ML IV SCH ×2 (00:35→09:34)
[2017-04-07] MEDS: oxyCODONE/ACETAMINOPHEN 5 MG/325 MG TAB PO PRN ×3 (02:36→12:46)
[2017-04-07] MEDS: HEPARIN SODIUM - SQ 10,000 UNITS/ML VIAL SQ SCH ×2 (06:01→12:46)
[2017-04-07 08:00] VITALS: BP 112/66; PULSE 90; RESP 18; TEMP 96; O2SAT 97
[2017-04-07 08:25] LABS: BASOPHIL % 0.1 % (0.0-2.0); EOSINOPHIL % 0.3 % (0.0-4.0); HEMATOCRIT 33.5 % (35.0-46.0); HEMO FLAGS DIFF FINAL; LYMPH % 28.8 % (9.0-44.0); LYMPHOCYTE # 2.7 TH/MM3 (1.0-4.8); MEAN CELL VOLUME 88.1 FL (80.0-100.0); MEAN CORPUSCULAR HEMOGLOBIN 28.5 PG (27.0-34.0); MEAN CORPUSCULAR HGB CONC 32.4 % (32.0-36.0); MONO % 7.4 % (0.0-8.0); NEUT % 63.4 % (16.0-70.0); PLATELET COUNT 294 TH/MM3 (150-450); RED BLOOD COUNT 3.81 MIL/MM3 (4.00-5.30); RED CELL DISTRIBUTION WIDTH 14.5 % (11.6-17.2); WHITE BLOOD COUNT 9.4 TH/MM3 (4.0-11.0)
[2017-04-07 08:49] LABS: BICARBONATE 27.1 MEQ/L (21.0-32.0); MAGNESIUM 2.2 MG/DL (1.5-2.5); POTASSIUM 4.1 MEQ/L (3.5-5.1)
[2017-04-07] MEDS ORDERED: DOCUSATE SODIUM 100 MG CAP PO SCH (09:00)
[2017-04-07] MEDS: SODIUM CHLOR 0.9% 1000 ML INJ 1,000 ML IV SCH (09:31)
[2017-04-07] MEDS: DIVALPROEX SODIUM DELAYED RELEASE 250 MG TAB PO SCH (09:32)
[2017-04-07] MEDS: GABAPENTIN 300 MG CAP PO SCH ×2 (09:32→12:46)
[2017-04-07] MEDS: LEVOTHYROXINE SODIUM 125 MCG TAB PO SCH (09:33)
[2017-04-07] MEDS: PANTOPRAZOLE SOD 20 MG DELAYED RELEASE TAB PO SCH (09:33)
[2017-04-07] MEDS: FENOFIBRATE 145 MG TAB PO SCH (09:33)
[2017-04-07] MEDS: ATORVASTATIN 40 MG TAB PO SCH (09:33)
[2017-04-07] MEDS: ASPIRIN EC 81 MG TABEC PO SCH (09:33)
[2017-04-07] MEDS: ESCITALOPRAM OXALATE 20 MG TAB PO SCH (09:33)
[2017-04-07] MEDS: levETIRAcetam 500 MG TAB PO SCH (09:33)
[2017-04-07] MEDS: SODIUM CHLORIDE 0.9% FLUSH 10 ML FLUSH IV FLUSH SCH (09:39)
[2017-04-07 12:00] VITALS: BP 105/54; PULSE 77; RESP 17; TEMP 96; O2SAT 97
--- NOTE | 2017-04-07 13:49 | HHI.PR ---
Subjective Remarks Follow-up states she is doing okay. Usual right hip pain. Counseled regarding narcotics. She is stable for discharge discussed with RN Objective Vitals Vital Signs Date Time Temp Pulse Resp B/P (MAP) Pulse Ox O2 Delivery O2 Flow Rate FiO2 04/07/17 12:00 96.0 77 17 105/54 (71) 97 04/07/17 08:00 96.0 90 18 112/66 (81) 97 04/06/17 23:49 96.3 80 18 117/69 (85) 97 04/06/17 20:01 97.0 82 20 134/83 (100) 93 04/06/17 16:00 97.1 85 17 122/75 (91) 95 I/O 04/06/17 04/06/17 04/06/17 04/07/17 04/07/17 04/07/17 07:00 15:00 23:00 07:00 15:00 23:00 Intake Total 270 ml 750 ml 1460 ml 1030 ml Balance 270 ml 750 ml 1460 ml 1030 ml Intake Oral 120 ml 960 ml 780 ml IV Total 150 ml 750 ml 500 ml 250 ml # Voids 0 7 4 # Bowel Movements 0 3 2 Result Diagram: 04/07/17 0759 04/07/17 0759 Imaging Last Impressions Chest X-Ray 04/05/171944 Signed Impressions: Service Date/Time: Wednesday, April 05, 2017 20:02 - CONCLUSION: Mild patchiness within the left lung base consistent with atelectasis and/or developing infiltrate. Clinical correlation is recommended. Jd Gee MD Objective Remarks GENERAL: female lying in bed SKIN: No rashes, ecchymoses or lesions. Cool and dry. CARDIOVASCULAR: Regular rate and rhythm without murmurs, gallops, or rubs. RESPIRATORY: Clear to auscultation. Breath sounds equal bilaterally. No wheezes , rales, or rhonchi. GASTROINTESTINAL: Abdomen soft, non-tender, nondistended. No guarding. MUSCULOSKELETAL: Extremities without clubbing, cyanosis, or edema. No joint tenderness, effusion, or edema noted. No calf tenderness. NEUROLOGICAL: Awake and alert. Cranial nerves II through XII intact. Motor and sensory grossly within normal limits. Normal speech. Procedures None A/P Problem List: (1) Pneumonia ICD Code: J18.9 - Pneumonia, unspecified organism Status: Acute Assessment and Plan 1. Community-acquired pneumonia with hypoxia and severe sepsis. Failed outpatient therapy status post Cefdinir. Clinically improved currently on room air. Resolved leukocytosis Switch to by mouth Levaquin status post IV Levaquin and aztreonam. Blood cultures negative to date. Ordered sputum culture, a urinary antigen for pneumococcal and Legionella. Repeat chest x-ray in 6 weeks 2. JOSE LUIS. Improved status post hydration. Avoid nephrotoxic agents 3. Seizure disorder. Stable. Continue home antiepileptics 4. Hypertension/hyperlipidemia/hypothyroidism. Stable. Continue home medications 5. Right lower extremity pain Per patient report, she has discs compressing the nerves to her right leg She will follow-up with pain management as an outpatient Percocet when necessary counseled regarding narcotics Discharge Planning Discharge patient to home Condition on discharge: Improved Regular Diet as tolerated Ad Gem activity no driving Rx written: Levaquin and Percocet Follow-up with primary care physician Problem Qualifiers (1) Pneumonia: Qualified Codes: J18.1 - Lobar pneumonia, unspecified organism Noel Ramirez MD Apr 07, 2017 13:49
== END 2017-04-07 16:11 | disposition home or self-care (01) | DRG 871 ==
LOC: NEPE 17:17 → NEDA 21:53 → N07B 23:35
PROVIDERS: ADMIT Internal Medicine; ATTEND Internal Medicine
DX: A41.9 Sepsis, unspecified organism (principal); J18.9 Pneumonia, unspecified organism; N17.9 Acute kidney failure, unspecified; Q87.40 Marfan syndrome, unspecified; R65.20 Severe sepsis without septic shock; G70.00 Myasthenia gravis without (acute) exacerbation; R09.02 Hypoxemia; G40.909 Epilepsy, unspecified, not intractable, without status epilepticus; I10 Essential (primary) hypertension; E78.5 Hyperlipidemia, unspecified; E03.9 Hypothyroidism, unspecified; M79.604 Pain in right leg
CPT/HCPCS: 71010; 80048; 83605; 83735; 83880; 85007; 85025; 85027; 87040; 94640; 94664; 96374; 96375; J0456; J0696; J1644; J1956; J2920; J2930; J7030; J7050

== ENCOUNTER 2017-08-14 15:40 | Emergency (ER) | payer OTHER, MEDICAID ==
[~2017-08-14] VITALS: Ht 170.2 cm; Wt 104.0 kg
[~2017-08-14 15:40] MED LIST changes: -BIOT1SUB SL; -CENTTAB PO; -CHLO1TAB23 PO; +LEVA750T9 PO; -MISC-274; +OXYC1TAB63 PO; +TRAZ100T10 PO; -TRAZ100T4 PO; -VITA-83 PO; -[UNRECOGNIZED DRUG - CODE] PO
[2017-08-14 15:46] VITALS: BP 141/84; PULSE 93; RESP 17; TEMP 97.6; O2SAT 97
[2017-08-14] MEDS ORDERED: SODIUM CHLOR 0.9% 1000 ML INJ 1,000 ML IV SCH (16:42)
[2017-08-14] MEDS ORDERED: ONDANSETRON HCL 4 MG/2 ML VIAL IVP ONE (16:45)
[2017-08-14] MEDS ORDERED: SODIUM CHLORIDE 0.9% FLUSH 10 ML FLUSH IVF PRN (16:45)
[2017-08-14] MEDS ORDERED: PANTOPRAZOLE SODIUM 40 MG VIAL IVP ONE (16:45)
[2017-08-14 16:47] VITALS: BP 161/82; PULSE 82; RESP 18; O2SAT 100; O2SAT 98
--- NOTE | 2017-08-14 17:40 | PD ---
HPI Chief Complaint: Abdominal Pain Time Seen by Provider: 16:32 Travel History International Travel<30 days: No Contact w/Intl Traveler<30days: No Traveled to known affect area: No History of Present Illness HPI Patient is a 52-year-old female presenting to the emergency department for evaluation of abdominal pain and blood in her stool. Patient states this started this morning. She denies any nausea, vomiting, fever, chills. She had a bowel movement this morning which is more runny than normal however she denies any explosive or watery diarrhea. Patient states the abdominal pain is diffuse, an 8 out of 10, aching in nature. Symptom onset was sudden, symptoms are moderate in severity. There are no alleviating factors, there are no exacerbating factors. Patient states that she has been on prednisone for bronchitis for the last 6 days and is unsure if this is what caused her symptoms. She has no other complaints at this time. PFSH Past Medical History Anemia: Yes Arthritis: Yes Anxiety: Yes Depression: Yes High Cholesterol: Yes Chest Pain: Yes COPD: Yes Cerebrovascular Accident: Yes Diminished Hearing: Yes (BILATERAL - STS HOLES IN EAR DRUMS) Endocrine: Yes GERD: Yes Genitourinary: Yes Hiatal Hernia: Yes Hypertension: Yes Implanted Vascular Access Dvce: Yes Musculoskeletal: Yes Neurologic: Yes Psychiatric: Yes Immunizations Current: Yes Migraines: Yes Pancreatitis: Yes Seizures: Yes Sleep Apnea: Yes Thyroid Disease: Yes (hypothyroid) Ulcer: Yes ?: Not Menopausal: Yes : 2 Para: 2 Tubal Ligation: Yes (1988) Past Surgical History Abdominal Surgery: Yes (hernia repair, gall bladder removed) AICD: No Appendectomy: No Arteriovenous Shunt: No Body Medical Devices: 2 screws in right foot & bar; left foot reconstruction Cardiac Surgery: No Cholecystectomy: Yes Endocrine Surgery: No Eye Surgery: No Genitourinary Surgery: Yes (partial hysterectomy) Gynecologic Surgery: Yes Hysterectomy: Yes Insulin Pump: No Joint Replacement: No Neurologic Surgery: No Oral Surgery: Yes (WISDOM TEETH AND OTHER TEETH EXTRACTED) Pacemaker: No Thoracic Surgery: No Tonsillectomy: Yes Other Surgery: Yes (LAPROSCOPY WITH REMOVAL OF SCAR TISSUE FROM INTESTINES) Social History Alcohol Use: No Tobacco Use: No Substance Use: No Allergies-Medications (Allergen,Severity, Reaction): Coded Allergies: codeine (Unverified Allergy, Severe, RASH, 04/05/17) morphine (Unverified Allergy, Severe, 04/05/17) rash penicillin G (Unverified Allergy, Severe, RASH, 04/05/17) aspirin (Unverified Adverse Reaction, Severe, ULCER, 04/05/17) Reported Meds & Prescriptions Reported Meds & Active Scripts Active Hydrocodone-Acetaminophen 5-325 mg Tab 1 Tab PO Q6H PRN Flagyl (Metronidazole) 500 Mg Tab 500 Mg PO TID 10 Days Levaquin (Levofloxacin) 750 Mg Tablet 500 Mg PO DAILY 10 Days Oxycodone-Acetaminophen 5-325 (Oxycodone HCl/Acetaminophen) 5 Mg-325 Mg Tablet 1 Tab PO Q6H PRN Levaquin (Levofloxacin) 750 Mg Tablet 750 Mg PO DAILY Aspirin 81 (Aspirin) 81 Mg Tabdr 81 Mg PO DAILY 30 Days Keppra (Levetiracetam) 500 Mg Tab 500 Mg PO BID Reported Trazodone (Trazodone HCl) 100 Mg Tablet 100 Mg PO HS Fish Oil ([place]-3 Fatty Acids) 1,000 Mg Cap 2,000 Mg PO Coq-10 (Coenzyme Q10 (Ubidecarenone)) 400 Mg Cap 1 Tab PO DAILY Rosuvastatin (Rosuvastatin Calcium) 20 Mg Tab 20 Mg PO DAILY Stool Softener (Docusate Sodium) 100 Mg Cap 1 Cap PO DAILY Ondansetron (Ondansetron HCl) 4 Mg Tab 1 Mg PO BID Fenofibrate 145 Mg Tab 145 Mg PO DAILY Escitalopram (Escitalopram Oxalate) 20 Mg Tab 20 Mg PO BID Divalproex DR (Divalproex Sodium) 250 Mg Tabdr 250 Mg PO BID Cymbalta DR (Duloxetine HCl) 60 Mg Capdr 60 Mg PO HS Calcium (Calcium Carbonate) 600 Mg Tab 1,200 Mg PO DAILY Gabapentin 300 Mg Cap 300 Mg PO TID Levothyroxine (Levothyroxine Sodium) 125 Mcg Tab 125 Mcg PO BID Omeprazole 20 Mg Tab 20 Mg PO DAILY Review of Systems Except as stated in HPI: all other systems reviewed are Neg General / Constitutional: No: Fever Eyes: No: Blurred Vision HENT: No: Headaches Cardiovascular: No: Chest Pain or Discomfort Gastrointestinal: Positive: Nausea, Vomiting, Abdominal Pain Genitourinary: No: Dysuria Physical Exam Narrative GENERAL: Obese, well-developed, alert female. Presenting in no acute distress. SKIN: Warm and dry. HEAD: Atraumatic. Normocephalic. EYES: Pupils equal and round. No scleral icterus. No injection or drainage. ENT: No nasal bleeding or discharge. Mucous membranes pink and moist. NECK: Trachea midline. No JVD. CARDIOVASCULAR: Regular rate and rhythm. RESPIRATORY: No accessory muscle use. Clear to auscultation. Breath sounds equal bilaterally. GASTROINTESTINAL: Abdomen soft, tender to palpation diffusely nondistended. Hepatic and splenic margins not palpable. Hypoactive bowel sounds in the right upper and lower quadrant. MUSCULOSKELETAL: Extremities without clubbing, cyanosis, or edema. No obvious deformities. NEUROLOGICAL: Awake and alert. No obvious cranial nerve deficits. Motor grossly within normal limits. Five out of 5 muscle strength in the arms and legs. Normal speech. PSYCHIATRIC: Appropriate mood and affect; insight and judgment normal. Data Data Last Documented VS Vital Signs Date Time Temp Pulse Resp B/P (MAP) Pulse Ox O2 Delivery O2 Flow Rate FiO2 08/14/17 22:55 08/14/17 22:26 89 16 08/14/17 18:55 97 Room Air 08/14/17 15:46 97.6 Orders Orders Complete Blood Count With Diff (08/14/17 16:42) Comprehensive Metabolic Panel (08/14/17 16:42) Lipase (08/14/17 16:42) Prothrombin Time / Inr (Pt) (08/14/17 16:42) Act Partial Throm Time (Ptt) (08/14/17 16:42) Urinalysis - C+S If Indicated (08/14/17 16:42) Type And Screen (08/14/17 16:42) Ecg Monitoring (08/14/17 16:42) Iv Access Insert/Monitor (08/14/17 16:42) Oximetry (08/14/17 16:42) Ondansetron Inj (Zofran Inj) (08/14/17 16:45) Pantoprazole Inj (Protonix Inj) (08/14/17 16:45) Sodium Chlor 0.9% 1000 Ml Inj (Ns 1000 M (08/14/17 16:42) Sodium Chloride 0.9% Flush (Ns Flush) (08/14/17 16:45) Ct Abd/Pel W Iv Contrast(Rout) (08/14/17 ) Urine Culture (08/14/17 18:10) Sodium Chlor 0.9% 1000 Ml Inj (Ns 1000 M (08/14/17 19:15) Levofloxacin 750 Mg Premix Inj (Levaquin (08/14/17 21:30) Metronidazole 500 Mg Inj (Flagyl 500 Mg (08/14/17 21:30) Orthostatic Vital Signs (08/14/17 21:31) Acetamin-Hydrocod 325-7.5 Mg ([place] 7.5 (08/14/17 21:45) Lactic Acid (08/14/17 21:46) Ed Discharge Order (08/14/17 22:51) Labs Laboratory Tests Test 08/14/17 17:15 08/14/17 18:10 08/14/17 21:56 White Blood Count 20.9 TH/MM3 Red Blood Count 4.44 MIL/MM3 Hemoglobin 12.5 GM/DL Hematocrit 38.9 % Mean Corpuscular Volume 87.6 FL Mean Corpuscular Hemoglobin 28.3 PG Mean Corpuscular Hemoglobin Concent 32.3 % Red Cell Distribution Width 14.9 % Platelet Count 327 TH/MM3 Mean Platelet Volume 7.8 FL Neutrophils (%) (Auto) 79.5 % Lymphocytes (%) (Auto) 14.1 % Monocytes (%) (Auto) 6.2 % Eosinophils (%) (Auto) 0.1 % Basophils (%) (Auto) 0.1 % Neutrophils # (Auto) 16.6 TH/MM3 Lymphocytes # (Auto) 3.0 TH/MM3 Monocytes # (Auto) 1.3 TH/MM3 Eosinophils # (Auto) 0.0 TH/MM3 Basophils # (Auto) 0.0 TH/MM3 CBC Comment DIFF FINAL Differential Comment Prothrombin Time 10.0 SEC Prothromb Time International Ratio 1.0 RATIO Activated Partial Thromboplast Time 19.4 SEC Blood Urea Nitrogen 34 MG/DL Creatinine 1.17 MG/DL Random Glucose 82 MG/DL Total Protein 7.2 GM/DL Albumin 3.2 GM/DL Calcium Level 8.9 MG/DL Alkaline Phosphatase 47 U/L Aspartate Amino Transf (AST/SGOT) 280 U/L Alanine Aminotransferase (ALT/SGPT) 130 U/L Total Bilirubin 0.5 MG/DL Sodium Level 137 MEQ/L Potassium Level 4.8 MEQ/L Chloride Level 99 MEQ/L Carbon Dioxide Level 28.4 MEQ/L Anion Gap 10 MEQ/L Estimat Glomerular Filtration Rate 48 ML/MIN Lipase 98 U/L Urine Color YELLOW Urine Turbidity HAZY Urine pH 7.0 Urine Specific Early 1.025 Urine Protein TRACE mg/dL Urine Glucose (UA) NEG mg/dL Urine Ketones NEG mg/dL Urine Occult Blood NEG Urine Nitrite NEG Urine Bilirubin NEG Urine Urobilinogen 2.0 MG/DL Urine Leukocyte Esterase TRACE Urine RBC 2 /hpf Urine WBC 27 /hpf Urine Squamous Epithelial Cells 1 /hpf Urine Amorphous Sediment RARE Urine Bacteria RARE /hpf Urine Hyaline Casts 11 /lpf Urine Mucus FEW /lpf Microscopic Urinalysis Comment CULTURE INDICATED Lactic Acid Level 1.0 mmol/L MDM Medical Decision Making Medical Screen Exam Complete: Yes Emergency Medical Condition: Yes Medical Record Reviewed: Yes Interpretation(s) Laboratory Tests Test 08/14/17 17:15 08/14/17 18:10 White Blood Count 20.9 TH/MM3 Red Blood Count 4.44 MIL/MM3 Hemoglobin 12.5 GM/DL Hematocrit 38.9 % Mean Corpuscular Volume 87.6 FL Mean Corpuscular Hemoglobin 28.3 PG Mean Corpuscular Hemoglobin Concent 32.3 % Red Cell Distribution Width 14.9 % Platelet Count 327 TH/MM3 Mean Platelet Volume 7.8 FL Neutrophils (%) (Auto) 79.5 % Lymphocytes (%) (Auto) 14.1 % Monocytes (%) (Auto) 6.2 % Eosinophils (%) (Auto) 0.1 % Basophils (%) (Auto) 0.1 % Neutrophils # (Auto) 16.6 TH/MM3 Lymphocytes # (Auto) 3.0 TH/MM3 Monocytes # (Auto) 1.3 TH/MM3 Eosinophils # (Auto) 0.0 TH/MM3 Basophils # (Auto) 0.0 TH/MM3 CBC Comment DIFF FINAL Differential Comment Prothrombin Time 10.0 SEC Prothromb Time International Ratio 1.0 RATIO Activated Partial Thromboplast Time 19.4 SEC Blood Urea Nitrogen 34 MG/DL Creatinine 1.17 MG/DL Random Glucose 82 MG/DL Total Protein 7.2 GM/DL Albumin 3.2 GM/DL Calcium Level 8.9 MG/DL Alkaline Phosphatase 47 U/L Aspartate Amino Transf (AST/SGOT) 280 U/L Alanine Aminotransferase (ALT/SGPT) 130 U/L Total Bilirubin 0.5 MG/DL Sodium Level 137 MEQ/L Potassium Level 4.8 MEQ/L Chloride Level 99 MEQ/L Carbon Dioxide Level 28.4 MEQ/L Anion Gap 10 MEQ/L Estimat Glomerular Filtration Rate 48 ML/MIN Lipase 98 U/L Urine Color YELLOW Urine Turbidity HAZY Urine pH 7.0 Urine Specific Early 1.025 Urine Protein TRACE mg/dL Urine Glucose (UA) NEG mg/dL Urine Ketones NEG mg/dL Urine Occult Blood NEG Urine Nitrite NEG Urine Bilirubin NEG Urine Urobilinogen 2.0 MG/DL Urine Leukocyte Esterase TRACE Urine RBC 2 /hpf Urine WBC 27 /hpf Urine Squamous Epithelial Cells 1 /hpf Urine Amorphous Sediment RARE Urine Bacteria RARE /hpf Urine Hyaline Casts 11 /lpf Urine Mucus FEW /lpf Microscopic Urinalysis Comment CULTURE INDICATED Last Impressions Abdomen/Pelvis CT 08/14/17 0000 Signed Impressions: Service Date/Time: Saturday, August 14, 2017 20:46 - CONCLUSION: Prominent inflammatory changes around the ascending colon. This may reflect diverticulitis or typhlitis. Neoplasm would be a less likely consideration. Prominence of the extrahepatic biliary tree which may be reservoir affect. Correlation with liver function lab studies recommended. Claude Mireles MD Vital Signs Date Time Temp Pulse Resp B/P (MAP) Pulse Ox O2 Delivery O2 Flow Rate FiO2 08/14/17 16:47 98 Room Air 08/14/17 16:47 82 18 161/82 (108) 100 Room Air 08/14/17 15:46 97.6 93 17 141/84 (103) 97 Differential Diagnosis GI bleed versus gastroenteritis versus metabolic abnormality versus obstruction versus other Narrative Course Patient is a 52-year-old female presenting to the emergency department for evaluation of abdominal pain, bloating, blood in her stool. Symptoms started this morning. Patient's vital signs are stable. Labs and imaging ordered and pending. IV access established, patient placed on telemetry monitoring continuous pulse oximetry. CBC with a white count of 20.9 with left shift Chemistry with BUN and creatinine 34/1.17, previous value was 27/0.91 in March 2017. Patient was given a liter of IV fluids. Liver enzymes are elevated at 280/130. This is also elevated from prior. Patient was given metronidazole and Levaquin IV in the emergency department. She was given oral Lortab for pain. She does have a reported allergy to codeine and morphine but can take hydrocodone. Urinalysis has reflex culture pending, Levaquin will also cover UTI. Lactic acid is 1.0 Orthostatic vital signs showed a 20 point drop however patient was asymptomatic. Patient was discharged home on oral medications. She was given strict return precautions. She was encouraged to follow-up with her primary doctor. Patient and verbalized understanding of discharge instructions. Patient stable for discharge. Diagnosis Primary Impression: Diverticulitis Additional Impression: UTI (urinary tract infection) Qualified Codes: N39.0 - Urinary tract infection, site not specified Referrals: [facility] Embryologist Primary Care Physician Patient Instructions: Diverticulitis (ED), Diverticulitis Diet (GEN), General Instructions, Urinary Tract Infection in Women (DC) Additional Instructions: Follow-up with your primary doctor Follow-up with your dandy tender Complete full course of antibiotics as prescribed Maintain adequate fluid intake Return immediately to emergency department for any new or worsening symptoms Med/Other Pt SpecificInfo: Prescription(s) given Scripts Hydrocodone-Acetaminophen (Hydrocodone-Acetaminophen) 5-325 mg Tab 1 TAB PO Q6H Y for PAIN, #10 TAB 0 Refills Prov: Lila Russell 08/14/17 Metronidazole (Flagyl) 500 Mg Tab 500 MG PO TID for Infection for 10 Days, TAB 0 Refills Prov: Lila Russell 08/14/17 Levofloxacin (Levaquin) 750 Mg Tablet 500 MG PO DAILY for Infection for 10 Days, #6 TAB 0 Refills Prov: Lila Russell 08/14/17 Disposition: 01 DISCHARGE HOME Condition: Stable Lila Russell Aug 14, 2017 17:40
[2017-08-14 18:54] LABS: ALKALINE PHOSPHATASE 47 U/L (45-117); TOTAL BILIRUBIN ADULT 0.5 MG/DL (0.2-1.0); TOTAL PROTEIN 7.2 GM/DL (6.4-8.2)
[2017-08-14 18:55] VITALS: BP 144/73; PULSE 91; RESP 20; O2SAT 97
[2017-08-14 18:56] LABS: AUTOMATED NEUTROPHIL # 16.6 TH/MM3 (1.8-7.7); BASOPHIL % 0.1 % (0.0-2.0); EOSINOPHIL % 0.1 % (0.0-4.0); HEMATOCRIT 38.9 % (35.0-46.0); HEMOGLOBIN 12.5 GM/DL (11.6-15.3); LYMPH % 14.1 % (9.0-44.0); MEAN CELL VOLUME 87.6 FL (80.0-100.0); MEAN CORPUSCULAR HEMOGLOBIN 28.3 PG (27.0-34.0); MEAN CORPUSCULAR HGB CONC 32.3 % (32.0-36.0); MEAN PLATELET VOLUME 7.8 FL (7.0-11.0); MONO % 6.2 % (0.0-8.0); MONOCYTE # 1.3 TH/MM3 (0-0.9); NEUT % 79.5 % (16.0-70.0); PLATELET COUNT 327 TH/MM3 (150-450); RED BLOOD COUNT 4.44 MIL/MM3 (4.00-5.30); RED CELL DISTRIBUTION WIDTH 14.9 % (11.6-17.2); WHITE BLOOD COUNT 20.9 TH/MM3 (4.0-11.0)
[2017-08-14 19:00] LABS: AMORPHOUS SEDIMENT, URINE RARE; BACTERIA, URINE RARE /hpf; BILIRUBIN, URINE NEG (NEG); BLOOD, URINE NEG (NEG); GLUCOSE,URINE NEG (NEG); HYALINE CAST, URINE 11 /lpf (RARE); KETONE, URINE NEG (NEG); MUCUS URINE FEW /lpf (OCC); NITRITE,URINE NEG (NEG); SQUAMOUS EPITHELIAL CELL URINE 1 /hpf (0-5); URINE COLOR YELLOW (YELLW/STRAW); URINE LEUKOCYTE ESTERASE TRACE (NEG)
[2017-08-14 19:07] LABS: ALBUMIN 3.2 GM/DL (3.4-5.0); ALT (GPT) 130 U/L (10-53); AST (GOT) 280 U/L (15-37); BICARBONATE 28.4 MEQ/L (21.0-32.0); BLOOD UREA NITROGEN 34 MG/DL (7-18); CALCIUM 8.9 MG/DL (8.5-10.1); CHLORIDE 99 MEQ/L (98-107); CREATININE 1.17 MG/DL (0.50-1.00); GLOMERULAR FILTRATION RATE 48 ML/MIN (>89); GLUCOSE,RANDOM 82 MG/DL (74-106); SODIUM (NA) 137 MEQ/L (136-145)
[2017-08-14] MEDS ORDERED: SODIUM CHLOR 0.9% 1000 ML INJ 1,000 ML IV ONE (19:15)
[2017-08-14] MEDS ORDERED: IOHEXOL 350 MG/ML 10 ML VIAL (for RAD DIAG) IVCONTRAST ONE (20:46)
--- NOTE | 2017-08-14 21:14 | RADRPT ---
EXAM DATE/TIME: 08/14/2017 20:46 [facility] COMPARISON: No previous studies available for comparison. INDICATIONS : Abdominla pain with blood in stool. IV CONTRAST: 96 cc Omnipaque 350 (iohexol) IV ORAL CONTRAST: No oral contrast ingested. RADIATION DOSE: 12.75 CTDIvol (mGy) MEDICAL HISTORY : Cardiovascular disease. Pancreatitis. Anemia, Ulcers, Hiatal Hernia. SURGICAL HISTORY : Tubal ligation. Hysterectomy. ENCOUNTER: Initial ACUITY: 1 day PAIN SCALE: 5/10 LOCATION: Bilateral abdomen TECHNIQUE: Volumetric scanning of the abdomen and pelvis was performed. Using automated exposure control and ad justment of the mA and/or kV according to patient size, radiation dose was kept as low as reasonably achievable to obtain optimal diagnostic quality images. DICOM format image data is available electro nically for review and comparison. FINDINGS: LOWER LUNGS: The visualized lower lungs are clear. LIVER: Homogeneous density without lesion. There is no dilation of the biliary tree. Gallbladder surgically absent. Moderate dilatation of the extrahepatic biliary tree which may be reservoir affect post chol ecystectomy.. SPLEEN: Normal size without lesion. PANCREAS: Within normal limits. KIDNEYS: Cysts arising from the posterior midpole the upper pole cortex of the left kidney. No hydronephrosis or stone. ADRENAL GLANDS: Within normal limits. VASCULAR: There is no aortic aneurysm. BOWEL/MESENTERY: There is prominent inflammatory change surrounding the ascending colon. There are a few diverticula e vident and the appearance may reflect diverticulitis. The remainder of the colon is normal in caliber and appearance. The small bowel is unremarkable. ABDOMINAL WALL: Within normal limits. RETROPERITONEUM: There is no lymphadenopathy. BLADDER: No wall thickening or mass. REPRODUCTIVE: Uterus is surgically absent. No evidence of pelvic mass or free fluid. INGUINAL: Previous mesh hernia repair on the right. MUSCULOSKELETAL: Within normal limits for patient age. CONCLUSION: Prominent inflammatory changes around the ascending colon. This may reflect diverticulitis or typhlit is. Neoplasm would be a less likely consideration. Prominence of the extrahepatic biliary tree which may be reservoir affect. Correlation with liver fun ction lab studies recommended. Claude Mireles MD on August 14, 2017 at 21:06 Board Certified Radiologist. This report was verified electronically.
[2017-08-14] MEDS ORDERED: metroNIDAZOLE 500 MG INJ 100 ML IV ONE (21:30)
[2017-08-14] MEDS ORDERED: LEVOFLOXACIN 750 MG PREMIX INJ 150 ML IV ONE (21:30)
[2017-08-14] MEDS ORDERED: ACETAMINOPHEN/HYDROcodone 325 MG/7.5 MG TAB PO ONE (21:45)
[2017-08-14 22:21] VITALS: BP 144/72; RESP 16
[2017-08-14 22:22] VITALS: BP 132/76; RESP 18
[2017-08-14 22:26] VITALS: BP 119/84; RESP 16
[2017-08-14] MEDS ORDERED: HYDR-3516 PO (22:51)
[2017-08-14] MEDS ORDERED: METR-1 PO (22:51)
[2017-08-14] MEDS ORDERED: LEVA750T9 PO (22:51)
== END 2017-08-14 23:30 | disposition home or self-care (01) ==
LOC: NEPE 15:40
DX: K57.92 Diverticulitis of intestine, part unspecified, without perforation or abscess without bleeding (principal); N39.0 Urinary tract infection, site not specified; E03.9 Hypothyroidism, unspecified; E78.00 Pure hypercholesterolemia, unspecified; F32.9 Major depressive disorder, single episode, unspecified; K21.9 Gastro-esophageal reflux disease without esophagitis; I10 Essential (primary) hypertension
CPT/HCPCS: 74177; 80053; 81001; 83605; 83690; 85025; 85610; 85730; 86850; 86900; 86901; 87086; 96361; 96365; 96367; 96375; 99285; C9113; J1956; J2405; J7030; Q9967

== ENCOUNTER → 2017-10-08 | Outpatient (CLI) | payer OTHER, MEDICAID ==
[~2017-10-08] MED LIST changes: +HYDR-3516 PO; +METR-1 PO
--- NOTE | 2017-10-14 11:58 | RSPPFT ---
DATE OF PROCEDURE: 10/08/17 COMMENTS: Spirometry with FVC of 3.5 at 104% of predicted, FEV1 of 2.5 at 94%, FEV1/FVC ratio is normal. Flow is normal at FEF 25, FEF 50 and decreased at FEF 75. There is no response after bronchodilator treatment. Lung volumes show residual volume is normal. TLC is normal. Normal diffusion capacity. Flow volume loop indicates a normal pattern. Blood gases show pH of 7.47, PCO2 of 41, PO2 of 59, BiCarb of 29 and Saturation at 88%. Patient was unable to perform the 6-minute walk test. IMPRESSION: 1. Normal spirometry. 2 No respone after bronchodilator treatment. 3. Normal lung volumes. 4. Normal diffusion capacity. 5. Blood gases show significant hypoxia on room air. 6. Patient could not perform 6-minute walk test.
== END ==
LOC: PHRSP 07:42
PROVIDERS: ATTEND Specialist
DX: J44.9 Chronic obstructive pulmonary disease, unspecified (principal)
CPT/HCPCS: 36600; 82805; 94060; 94726; 94729